=== PATIENT | male | born 1955 | race Caucasian/White ===

== ENCOUNTER 2016-11-09 13:07 | Emergency (ER) | payer OTHER ==
[~2016-11-09] VITALS: Ht 170.2 cm; Wt 82.0 kg
[~2016-11-09 13:07] MED LIST: ASPI325T39 PO; BRIM0.1S OPR; CHOL100010 PO; CYAN10005 PO; MULT-506 PO; OMEG10007 PO; OXYC1TAB3 PO; PRED1SUS3 OPR
[2016-11-09 13:15] VITALS: Ht 170.2 cm; Wt 82.0 kg
[2016-11-09 13:19] VITALS: O2SAT 98
[2016-11-09 13:30] LABS: BASO % 0.2 %; BASO ABS # 0.05 K/uL (0-0.2); COMPLETE YES; HEMATOCRIT 50.1 % (42-52); IG% 0.4 %; LYMPH ABS # 2.22 K/uL (1.2-3.4); MEAN CELL VOLUME 92.1 fL (80-100); MEAN CORPUSCULAR HEMOGLOBIN 32.2 pg (25-34); MEAN CORPUSCULAR HGB CONC 34.9 g/dl (32-36); MEAN PLATELET VOLUME 9.5 fL (7.4-10.4); MONO % 3.5 %; NEUT % 84.9 %; PLATELET COUNT 336 K/uL (130-400); RED BLOOD COUNT 5.44 M/uL (4.7-6.1)
[2016-11-09 13:47] LABS: BUN/CREATININE RATIO 11.6 (10-20); CALCIUM 9.1 mg/dl (8.5-10.1); CREATININE 0.94 mg/dl (0.60-1.40); POTASSIUM 3.8 mmol/L (3.5-5.1)
[2016-11-09] MEDS ORDERED: SODIUM CHLORIDE 0.9% 1000ML 1,000 ML IV STA ×2 (14:20→15:13)
[2016-11-09] MEDS ORDERED: FENTANYL CITRATE INJ 50 MCG/1 ML 2 ML VIAL IV STA (14:20)
[2016-11-09] MEDS ORDERED: ONDANSETRON INJ 2 MG/ML 2 ML VIAL IV STA (14:20)
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
[2016-11-09] MEDS ORDERED: OPTIRAY 320 IV PRN (14:30)
[2016-11-09] MEDS ORDERED: OXYC-164 PO (14:48)
[2016-11-09] MEDS ORDERED: HYDROmorphone INJ 1 MG/ML SYR IV STA (15:03)
--- NOTE | 2016-11-09 15:15 | DIAGNOSTIC IMAGING REPORT ---
ABDOMEN AND PELVIS CT WITH IV CONTRAST CT DOSE: 447.95 mGy.cm HISTORY: RLQ abdominal pain, leukocytosis TECHNIQUE: Multiaxial CT images of the abdomen and pelvis were performed following the use of intravenous contrast. COMPARISON STUDY: Abdomen and pelvis CT 07/28/2014. FINDINGS: Stable benign 4 mm nodules within the lung bases. There are mild dependent changes seen within the lung bases. No acute fractures. Cholecystectomy. A 7 mm hypodense lesion within the right hepatic lobe is too small to characterize. The spleen, pancreas, and right adrenal gland are unremarkable. There is a thickened left adrenal gland, unchanged. A few bilateral renal hypodense lesions. Some of these are subcentimeter in size and too small to characterize. Dominant lesion within the upper pole the right kidney measures 1.4 cm. This does not clearly represent a simple cyst. Dominant lesion within the lower pole the left kidney measures 2.5 cm and likely represents a cyst. No left-sided hydronephrosis. Mild right hydronephrosis secondary to a 3 mm obstructing stone at the right ureterovesical junction. There is right perinephric and periureteral fat stranding. No retroperitoneal lymphadenopathy. Complete occlusion of the left common iliac artery with reconstitution of the external iliac artery/internal iliac artery bifurcation. Therefore, this is likely chronic. Bladder is not well-distended. Colonic diverticulosis. No bowel wall thickening or obstruction. Normal appendix. IMPRESSION: 1. A 3 mm obstructing stone at the right ureterovesical junction resulting in mild right hydronephrosis. 2. A 14 mm hypodense lesion within the upper pole of the right kidney which does not clearly represent a simple cyst. Follow-up nonemergent ultrasound may help for further evaluation. 3. Colonic diverticulosis. 4. Normal appendix. 5. No bowel wall thickening or obstruction. 6. 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 Electronically signed by: Daniel Julien M.D. 11/09/2016 3:13 PM Dictated Date/Time: 11/09/2016 3:05 PM
[2016-11-09 15:35] LABS: URINE APPEARANCE CLEAR (CLEAR); URINE BILIRUBIN NEG (NEG); URINE COLOR YELLOW; URINE EPITHELIAL CELL AUTO 0-5 /lpf (0-5); URINE NITRITE NEG (NEG); URINE PH 6.5 (4.5-7.5); UROBILINOGEN NEG (NEG); ZZUR CULT IF INDIC CLEAN CATCH NO
[2016-11-09 15:36] LABS: MANUAL MICROSCOPIC REQUIRED? NO; REVIEW REQ? NO
[2016-11-09] MEDS ORDERED: OXYCODONE IR HOME PACK PO ONE (15:45)
[2016-11-09 16:35] VITALS: BP 148/87; PULSE 93; O2SAT 95
== END 2016-11-09 16:20 | disposition home or self-care (01) ==
LOC: EDBD 13:07 → C.EDB 13:08
DX: N20.1 Calculus of ureter (principal); N13.30 Unspecified hydronephrosis; D72.829 Elevated white blood cell count, unspecified; I15.9 Secondary hypertension, unspecified; Z79.82 Long term (current) use of aspirin; Z86.59 Personal history of other mental and behavioral disorders; Z87.442 Personal history of urinary calculi

== ENCOUNTER 2018-11-10 14:42 | Inpatient (IN) ==
[2018-11-10] MEDS ORDERED: SODIUM CHLORIDE 0.9% 1000ML 1,000 ML IV SCH (15:15)
[2018-11-10] MEDS ORDERED: fentaNYL citrate 100 MCG/2 ML VIAL IV STA ×3 (15:23→18:38)
[2018-11-10] MEDS ORDERED: ACETAMINOPHEN 1,000 MG/100 ML VIAL IV STA (15:23)
[2018-11-10] MEDS ORDERED: cefTRIAXone SODIUM 1,000 MG/50 ML BAG IV STA (15:31)
[2018-11-10 16:55] LABS: Appearance Urine Clear (Clear); Bilirubin Urine Negative (Negative); Blood Urine 1+ (Negative); Color Urine Yellow; Glucose Urine UA Negative (Negative); Ketones Urine Negative (Negative); Leukocyte Esterase Urine Negative (Negative); Nitrite Urine Negative (Negative); Protein Urine Negative (Negative); Specific Gravity Urine 1.025 (1.000-1.030); Urobilinogen Urine Negative (Negative)
[2018-11-10 17:08] LABS: Bacteria Urine Negative (Negative); WBC Urine 0-5 /hpf (0-5)
[2018-11-10 17:09] LABS: Hyaline Casts Urine 0-5 /lpf (0-5)
[2018-11-10 17:51] LABS: Basophils # (auto) 0.05 K/uL (0-0.2); Basophils % (auto) 0.2 %; Eosinophils # (auto) 0.04 K/uL (0-0.5); Eosinophils % (auto) 0.2 %; Hematocrit (blood only) 45.6 % (42-52); Hemoglobin 16.7 g/dL (14.0-18.0); Immature Granulocytes % (auto) 0.4 %; Lymphocytes # (auto) 1.67 K/uL (1.2-3.4); Lymphocytes % (auto) 7.3 %; Mean Corpuscular Hgb Conc 36.6 g/dL (32-36); Mean Corpuscular Volume 93.1 fL (80-100); Mean Platelet Volume 9.9 fL (7.4-10.4); Monocytes # (auto) 1.49 K/uL (0.11-0.59); Monocytes % (auto) 6.5 %; Neutrophils # (auto) 19.44 K/uL (1.4-6.5); Neutrophils % (auto) 85.4 %; Platelet Count 285 K/uL (130-400); RDW Coefficient of Variation 14.2 % (11.5-14.5); RDW Standard Deviation 47.9 fL (36.4-46.3); White Blood Count 22.79 K/uL (4.8-10.8)
[2018-11-10 18:06] LABS: Albumin Level 3.4 gm/dl (3.4-5.0); Bilirubin Direct < 0.1 mg/dl (0-0.2); Blood Urea Nitrogen 11 mg/dl (7-18); Calcium 8.7 mg/dl (8.5-10.1); Carbon Dioxide 24 mmol/L (21-32); Chloride 111 mmol/L (98-107); Creatinine Clr Calc Pharmacy 72.7 ml/min; Est GFR (African American) 86.9; Glucose 156 mg/dl (70-99); Potassium 3.4 mmol/L (3.5-5.1); Sodium 141 mmol/L (136-145)
[2018-11-10 18:10] LABS: Alanine Aminotransferase 19 U/L (12-78); Albumin Globulin Ratio 0.8 (0.9-2); Alkaline Phosphatase 63 U/L (45-117); Aspartate Aminotransferase 16 U/L (15-37); Bilirubin,Total 0.2 mg/dl (0.2-1); Total Protein 7.4 gm/dl (6.4-8.2)
[2018-11-10] MEDS ORDERED: IOVERSOL 100ml IV PRN (19:01)
--- NOTE | 2018-11-10 19:21 | CT Scan Report ---
ABDOMEN AND PELVIS CT WITH IV CONTRAST CT DOSE: 713.10 mGycm HISTORY: right flank pain, known kidney stone TECHNIQUE: Multiaxial CT images of the abdomen and pelvis were performed following the use of intrave nous contrast. A dose lowering technique was utilized adhering to the principles of ALARA. COMPARISON STUDY: Abdomen and pelvis CT 11/06/2018. FINDINGS: Bibasilar densities favor subsegmental atelectasis. No pneumoperitoneum. No pneumatosis. No fractures within the visualized osseous structures. There is a 9 mm hypodense lesion within the righ t hepatic lobe. Small fat-containing epigastric midline hernia. No change in the 3 mm stone at the le ft ureterovesical junction resulting in mild left hydroureteronephrosis. Left renal cysts remain unch anged. There is a 16 mm lesion within the upper pole the right kidney which appears to enhance. There fore, this is concerning for a renal mass. No right-sided hydronephrosis. Left adrenal gland thickeni ng, unchanged. Normal right adrenal gland. The pancreas is unremarkable. Prior cholecystectomy. No re troperitoneal lymphadenopathy. Chronic occlusion of the left common iliac artery, unchanged. Colonic diverticulosis. Mild bladder wall thickening. No bowel wall thickening or obstruction. Normal appendi x. Left perinephric edema is noted. IMPRESSION: 1. No change in the 3 mm obstructing stone within the left ureterovesical junction resulting in mild left hydronephrosis. 2. No bowel wall thickening or obstruction. 3. Normal appendix. 4. A 16 mm exophytic lesion within the upper pole of the right kidney which appears to enhance. This is concerning for a renal mass and a dedicated renal CT or renal MRI is recommended for further evalu ation. 5. Bladder wall thickening. This favors a cystitis. 6. Colonic diverticulosis. No evidence for diverticulitis. Electronically signed by: Daniel Julien M.D. 11/10/2018 7:19 PM
[2018-11-10] MEDS ORDERED: POTASSIUM CHLORIDE 20 MEQ TABCR PO STA (20:04)
[2018-11-10] MEDS ORDERED: LISINOPRIL 5 MG TAB PO STA (20:07)
[2018-11-10] MEDS: MoRPHine SULFATE 4 MG/ML 1 ML CARP\\VIAL IV PRN (20:24)
[2018-11-10 20:34] LABS: Magnesium 2.2 mg/dl (1.8-2.4)
--- NOTE | 2018-11-10 20:41 | XRay Report ---
XR chest 1V portable HISTORY: Hypoxia. COMPARISON: Chest 07/28/2014. FINDINGS: Punctate calcified granuloma within the left midlung zone, unchanged. The lungs are otherwi se clear. The heart is normal in size. No pleural effusions. No pneumothorax. IMPRESSION: No acute process. Electronically signed by: Daniel Julien M.D. 11/10/2018 8:40 PM
--- NOTE | 2018-11-10 20:46 | History & Physical Report ---
Date of Service November 10, 2018 Assessment & Plan (1) Complicated UTI (urinary tract infection): Obstructive uropathy Partially treated UTI No overt sepsis for now Incidental finding of right renal mass on CT hypertension, elevated secondary discomfort Patient unaware of diagnosis despite outpatient documentation. Hypokalemia secondary emesis chronic bilateral blindness status post surgery chronic HCV status post Rx ongoing tobacco abuse Narcotic dependence as per records Hyperglycemia rule out DM GMF Follow urine cultures, IV ceftriaxone Analgesia, judicious narcotic use given history of narcotic dependence as per records/terminated outpatient AURELIANO Initiate lisinopril replace potassium Flomax Strain urine Urology consult RE obstructive uropathy, left; right renal mass on CT ( ER provider already in touch with Dr. Koroma.) Check hemoglobin A1c Nicotine patch DVT prophylaxis. Lovenox subcu Full code History of Present Illness Chief Complaint: Left flank pain Primary Care Provider: Pedro Vides MD History obtained from patient and records. Medical history significant for hypertension, chronic bilateral blindness, chronic HCV status post Rx, ongoing tobacco abuse, urolithiasis, narcotic dependence as per records Recent confinement July 2014 for possible cholecystitis. Patient signed out AGAINST MEDICAL ADVICE. Patient was seen at the ER 4 days ago for 4 days history achy left flank pain, sweats, chills reminiscent of kidney stone pain. One episode of emesis. CT abdomen pelvis showed a 3 mm calculus at the level of left UVJ with secondary obstructive changes. Patient given IV ceftriaxone at the ER. Admission recommended but patient refused. Poor compliance with outpatient prescriptions of ciprofloxacin and Flomax. Patient return to the ER with intractable symptoms. Medical History as above Surgical History : Eye surgeries, cholecystectomy, carpal tunnel surgery Family History : Diabetes, heart disease, stroke Personal/Social history : 2 packs daily, occasional EtOH intake, disabled Allergies Allergy/AdvReac Type Severity Reaction Status Date / Time amoxicillin Allergy Mild RASH Verified 11/10/18 16:32 Home Medications Home Medications Medication Instructions Recorded Confirmed Type ciprofloxacin HCl 500 mg PO BID #10 tab 11/06/18 11/10/18 Rx omega 2-vzb-[id number]-fish oil [Fish Oil] 2 cap PO QAM 11/06/18 11/10/18 History oxycodone 5 mg PO Q6H PRN #14 tab 11/06/18 11/10/18 Rx tamsulosin [Flomax] 0.4 mg PO DAILY #10 cap 11/06/18 11/10/18 Rx Unknown Cholesterol Med 1 tab PO DAILY 11/10/18 11/10/18 History aspirin, buffered 650 mg PO DAILY 11/10/18 11/10/18 History cholecalciferol (vitamin D3) 2,000 unit PO DAILY 11/10/18 11/10/18 History Past Med/Surg History Medical History Corneal transplant (Resolved 04/14/13) Cholelithiasis (Acute) Surgical History History of cholecystectomy Family History Other No pertinent family history Social History Preferred Language: Greenlandic Communication Ability: Effective Masticator Required: No Beliefs That Will Affect Care: L[employer] Day Latter Day Beliefs: "confirmed atheist, recovering Baptism" Current Living Situation: Significant Other current occupational status: retired Other Information That Helps Us Care for You: No Feels Safe at Home: Yes Safety Concerns: Feels Safe At This Time Smoking Status: Current every day smoker Tobacco Type: cigarettes Cigarettes Per Day: 40 Do You Dip or Chew Tobacco: No Hx Alcohol Use: Yes Alcohol type: beer and hard liquor Hx Substance Use: No Review of Systems Review of Systems: As per HPI, all 10 systems reviewed, all other ROS negative Physical Exam Physical Exam: GENERAL: Comfortable, no respiratory distress SKIN: Normal color, warm HEENT: [place] palpebral conjunctivae, bilateral prosthetic eyeballs noted, dry buccal mucosa NECK : Supple, no tenderness CHEST : CTA, no tenderness HEART : RRR, no obvious murmurs ABDOMEN: Some distention, nontender BACK : Flank tenderness left EXTREMITIES : No LE swelling/tenderness, no other conspicuous deformities noted NEUROLOGIC : Coherent, no facial asymmetry, gait and stance not assessed Results & Data Vital Signs (Past 12 Hours) Vital Signs Temp Pulse Pulse Resp BP BP Pulse Ox 11/10/18 20:26 95 H 19 222/121 H 95 11/10/18 20:12 77 19 94 11/10/18 18:47 79 18 201/114 H 96 11/10/18 18:04 78 20 187/108 H 96 11/10/18 17:13 90 13 186/105 H 88 L 11/10/18 17:00 88 15 207/104 H 93 11/10/18 15:30 87 85 18 216/113 H 95 11/10/18 15:02 37.1 C 80 18 205/108 H 97 Laboratory Results Laboratory Results WBC 22.79 K/uL (4.8-10.8) H 11/10/18 17:39 RBC 4.90 M/uL (4.7-6.1) 11/10/18 17:39 Hgb 16.7 g/dL (14.0-18.0) 11/10/18 17:39 Hct 45.6 % (42-52) 11/10/18 17:39 MCV 93.1 fL (80-100) 11/10/18 17:39 MCH 34.1 pg (25-34) H 11/10/18 17:39 MCHC 36.6 g/dL (32-36) H 11/10/18 17:39 RDW Std Deviation 47.9 fL (36.4-46.3) H 11/10/18 17:39 RDW Coeff of Ned 14.2 % (11.5-14.5) 11/10/18 17:39 Plt Count 285 K/uL (130-400) 11/10/18 17:39 MPV 9.9 fL (7.4-10.4) 11/10/18 17:39 Immature Gran % (Auto) 0.4 % 11/10/18 17:39 Neut % (Auto) 85.4 % 11/10/18 17:39 Lymph % (Auto) 7.3 % 11/10/18 17:39 [place] % (Auto) 6.5 % 11/10/18 17:39 Eos % (Auto) 0.2 % 11/10/18 17:39 Baso % (Auto) 0.2 % 11/10/18 17:39 Immature Gran # (Auto) 0.10 K/uL (0.00-0.02) H 11/10/18 17:39 Neut # (Auto) 19.44 K/uL (1.4-6.5) H 11/10/18 17:39 Lymph # (Auto) 1.67 K/uL (1.2-3.4) 11/10/18 17:39 [place] # (Auto) 1.49 K/uL (0.11-0.59) H 11/10/18 17:39 Eos # (Auto) 0.04 K/uL (0-0.5) 11/10/18 17:39 Baso # (Auto) 0.05 K/uL (0-0.2) 11/10/18 17:39 Sodium 141 mmol/L (136-145) 11/10/18 17:39 Potassium 3.4 mmol/L (3.5-5.1) L 11/10/18 17:39 Chloride 111 mmol/L (98-107) H 11/10/18 17:39 Carbon Dioxide 24 mmol/L (21-32) 11/10/18 17:39 Anion Gap 6.0 (3-11) 11/10/18 17:39 BUN 11 mg/dl (7-18) 11/10/18 17:39 Creatinine 1.04 mg/dl (0.6-1.4) 11/10/18 17:39 Est Cr Clr Drug Dosing 72.7 ml/min 11/10/18 17:39 Est GFR ( Amer) 86.9 11/10/18 17:39 Est GFR (Non-Af Amer) 75.0 11/10/18 17:39 BUN/Creatinine Ratio 11.0 (10-20) 11/10/18 17:39 Glucose 156 mg/dl (70-99) H 11/10/18 17:39 Lactate 1.1 mmol/L (0.4-2.0) 11/10/18 17:39 Calcium 8.7 mg/dl (8.5-10.1) 11/10/18 17:39 Magnesium 2.2 mg/dl (1.8-2.4) 11/10/18 17:39 Total Bilirubin 0.2 mg/dl (0.2-1) 11/10/18 17:39 Direct Bilirubin < 0.1 mg/dl (0-0.2) 11/10/18 17:39 AST 16 U/L (15-37) 11/10/18 17:39 ALT 19 U/L (12-78) 11/10/18 17:39 Alkaline Phosphatase 63 U/L (45-117) 11/10/18 17:39 Total Protein 7.4 gm/dl (6.4-8.2) 11/10/18 17:39 Albumin 3.4 gm/dl (3.4-5.0) 11/10/18 17:39 Globulin 4.0 gm/dl (2.5-4.0) 11/10/18 17:39 Albumin/Globulin Ratio 0.8 (0.9-2) L 11/10/18 17:39 Lipase 75 U/L (73-393) 11/10/18 17:39 TSH 0.928 uIu/ml (0.300-4.500) 11/10/18 17:39 Urine Color Yellow 11/10/18 15:47 Urine Appearance Clear (Clear) 11/10/18 15:47 Urine pH 6.0 (4.5-7.5) 11/10/18 15:47 Ur Specific [place] 1.025 (1.000-1.030) 11/10/18 15:47 Urine Protein Negative (Negative) 11/10/18 15:47 Urine Glucose (UA) Negative (Negative) 11/10/18 15:47 Urine Ketones Negative (Negative) 11/10/18 15:47 Urine Blood 1+ (Negative) H 11/10/18 15:47 Urine Nitrite Negative (Negative) 11/10/18 15:47 Urine Bilirubin Negative (Negative) 11/10/18 15:47 Urine Urobilinogen Negative (Negative) 11/10/18 15:47 Ur Leukocyte Esterase Negative (Negative) 11/10/18 15:47 Urine RBC 10-30 /hpf (0-4) H 11/10/18 15:47 Urine WBC 0-5 /hpf (0-5) 11/10/18 15:47 Ur Epithelial Cells 5-10 /lpf (0-5) H 11/10/18 15:47 Urine Bacteria Negative (Negative) 11/10/18 15:47 Hyaline Casts 0-5 /lpf (0-5) 11/10/18 15:[address] abdomen pelvis: 1. No change in the 3 mm obstructing stone within the left ureterovesical junction resulting in mild left hydronephrosis. 2. No bowel wall thickening or obstruction. 3. Normal appendix. 4. A 16 mm exophytic lesion within the upper pole of the right kidney which appears to enhance. This is concerning for a renal mass and a dedicated renal CT or renal MRI is recommended for further evaluation. 5. Bladder wall thickening. This favors a cystitis. 6. Colonic diverticulosis. No evidence for diverticulitis. Chest x-ray: No acute pathology EKG as per my interpretation: Rate 95, NSR, no ischemia
[2018-11-10] MEDS ORDERED: NICOTINE 21 MG/24 HR TDSY TD ONE (20:59)
[2018-11-10 21:05] LABS: Amphetamines+Metham, Urine Neg (Neg); Barbiturates, Urine Neg (Neg); Benzodiazepine, Urine Neg (Neg); Cocaine, Urine Neg (Neg); MDMA (Ecstacy), Urine Neg (Neg); Methadone, Urine Neg (Neg); Opiate, Urine Neg (Neg); Phencyclidine, Urine Neg (Neg)
[2018-11-10] MEDS ORDERED: ACETAMINOPHEN 325 MG TAB PO PRN ×2 (21:06→21:10)
[2018-11-10] MEDS ORDERED: PROMETHAZINE HCL 12.5 MG in SODIUM CHLORIDE 0.9% 50 ML IV PRN (21:07)
[2018-11-10] MEDS ORDERED: TAMSULOSIN HCL 0.4 MG CAP PO ONE (22:00)
[2018-11-10] MEDS: TRAMADOL HCL 50 MG TABLET PO PRN (22:32)
[2018-11-10] MEDS ORDERED: OXYCODONE HCL IR 5 MG TAB (IMMEDIATE RELEASE) PO PRN (23:22)
[2018-11-10] MEDS: LACTATED RINGER'S 1,000 ML IV SCH (23:45)
[2018-11-11] MEDS: MoRPHine SULFATE 4 MG/ML 1 ML CARP\\VIAL IV PRN ×3 (03:00→21:48)
--- NOTE | 2018-11-11 03:04 | Emergency Department Note ---
Entered by Sabina Fuller acting as a scribe for Chinmay Varela MD History of Present Illness General Chief complaint: Kidney Stone Stated complaint: LT SIDE KIDNEY STONE Time Seen by Provider: 11/10/18 15:13 Source: patient Mode of arrival: ambulatory Limitations: no limitations History of Present Illness Provider complaint: Kidney stone Onset (ago): day(s) 4 Location: back and abdomen Severity: moderate Pain Consistency: + constant Maximum Pain Intensity: 9 Associated symptoms: + denies other symptoms and + fever/chills (+ fever, - chills); no nausea/vomiting and no weakness Patient is a 63 year old male presenting to the ED with kidney stone beginning x4 days ago. Patient states that he was diagnosed with a left sided kidney stone upon onset, and has been having worsening pain in the left flank and LLQ since. He notes he was given abx and oxycodone, but was only given one dose of abx since diagnosis. Patient shares that he has not been able to take his medication as frequently as his backup sawyer has not been accessible as normal. He shares he is having an associated cough and subjective fever. He denies any nausea, v omiting, weakness, chills, or any other complaints or concerns at this time. He notes he does smoke marijuana and cigarettes daily. Home Medications Home Medications Medication Instructions Recorded Confirmed Type ciprofloxacin HCl 500 mg PO BID #10 tab 11/06/18 11/10/18 Rx omega 8-pwt-wsq-fish oil [Fish Oil] 2 cap PO QAM 11/06/18 11/10/18 History oxycodone 5 mg PO Q6H PRN #14 tab 11/06/18 11/10/18 Rx tamsulosin [Flomax] 0.4 mg PO DAILY #10 cap 11/06/18 11/10/18 Rx Unknown Cholesterol Med 1 tab PO DAILY 11/10/18 11/10/18 History aspirin, buffered 650 mg PO DAILY 11/10/18 11/10/18 History cholecalciferol (vitamin D3) 2,000 unit PO DAILY 11/10/18 11/10/18 History Allergies Allergy/AdvReac Type Severity Reaction Status Date / Time amoxicillin Allergy Mild RASH Verified 11/10/18 16:32 Past Med/Surg History Medical History Corneal transplant (Resolved 04/14/13) Cholelithiasis (Acute) Surgical History History of cholecystectomy Family History Other No pertinent family history Social History Preferred Language: Tongan Communication Ability: Effective Contact Lens Blocker And Cutter Required: No Beliefs That Will Affect Care: Jew Jew Beliefs: "confirmed atheist, recovering Islam" Current Living Situation: Significant Other current occupational status: retired Other Information That Helps Us Care for You: No Feels Safe at Home: Yes Safety Concerns: Feels Safe At This Time Smoking Status: Current every day smoker Tobacco Type: cigarettes Cigarettes Per Day: 40 Do You Dip or Chew Tobacco: No Hx Alcohol Use: Yes Alcohol type: beer and hard liquor Hx Substance Use: No Review of Systems See HPI for pertinent positives & negatives. and A total of 10 systems reviewed and were otherwise negative Physical Exam Vital Signs Vital Signs - 24 hr 11/10/18 15:02 11/10/18 15:30 11/10/18 17:00 Temperature 37.1 C Temperature Source Oral Sepsis Recent Fever Within 48 Hours No Sepsis Action Taken by Nursing No Action Required Pulse Rate 80 87 Pulse Rate [Apical] 85 88 Pulse Rhythm Regular Pulse Rhythm [Apical] Regular Regular Respiratory Rate 18 18 15 Respiratory Effort / Characteristics Non-Labored Spontaneous Non-Labored Respiratory Depth Normal Normal Respiratory Pattern Blood Pressure 205/108 H Blood Pressure [Left Arm] 216/113 H 207/104 H Blood Pressure [Right Arm] Blood Pressure Mean 140 Blood Pressure Mean [Left Arm] 147 138 Blood Pressure Mean [Right Arm] Blood Pressure Position [Left Arm] Sitting Sitting Pulse Oximetry 97 95 93 Oxygen Delivery Method Room Air Room Air Room Air 11/10/18 17:13 11/10/18 18:04 11/10/18 18:47 Temperature Temperature Source Sepsis Recent Fever Within 48 Hours Sepsis Action Taken by Nursing Pulse Rate Pulse Rate [Apical] 90 78 79 Pulse Rhythm Pulse Rhythm [Apical] Regular Respiratory Rate 13 20 18 Respiratory Effort / Characteristics Non-Labored Non-Labored Respiratory Depth Normal Normal Normal Respiratory Pattern Blood Pressure Blood Pressure [Left Arm] 186/105 H 187/108 H 201/114 H Blood Pressure [Right Arm] Blood Pressure Mean Blood Pressure Mean [Left Arm] 132 134 143 Blood Pressure Mean [Right Arm] Blood Pressure Position [Left Arm] Sitting Sitting Sitting Pulse Oximetry 88 L 96 96 Oxygen Delivery Method Room Air Room Air Room Air 11/10/18 20:12 11/10/18 20:26 11/10/18 21:01 Temperature Temperature Source Sepsis Recent Fever Within 48 Hours Sepsis Action Taken by Nursing Pulse Rate Pulse Rate [Apical] 77 95 H 91 H Pulse Rhythm Pulse Rhythm [Apical] Respiratory Rate 19 19 18 Respiratory Effort / Characteristics Respiratory Depth Respiratory Pattern Blood Pressure Blood Pressure [Left Arm] 222/121 H 139/98 Blood Pressure [Right Arm] Blood Pressure Mean Blood Pressure Mean [Left Arm] 154 111 Blood Pressure Mean [Right Arm] Blood Pressure Position [Left Arm] Lying Pulse Oximetry 94 95 95 Oxygen Delivery Method 11/10/18 21:47 11/10/18 21:59 11/10/18 22:06 Temperature 36.9 C Temperature Source Oral Sepsis Recent Fever Within 48 Hours Sepsis Action Taken by Nursing Pulse Rate 89 Pulse Rate [Apical] 95 H Pulse Rhythm Pulse Rhythm [Apical] Respiratory Rate 18 19 Respiratory Effort / Characteristics Non-Labored Spontaneous Respiratory Depth Normal Respiratory Pattern Regular Blood Pressure 154/101 H Blood Pressure [Left Arm] Blood Pressure [Right Arm] 149/91 H Blood Pressure Mean Blood Pressure Mean [Left Arm] Blood Pressure Mean [Right Arm] 110 Blood Pressure Position [Left Arm] Pulse Oximetry 97 94 Oxygen Delivery Method Room Air Room Air GENERAL: Awake, alert, uncomfortable-appearing, in no distress HENT: Normocephalic, atraumatic. Oropharynx with dry mucous membranes and otherwise unremarkable. EYES: Normal conjunctiva. Sclera non-icteric. NECK: Supple. No nuchal rigidity. FROM. No JVD. RESPIRATORY: Clear to auscultation CARDIAC: Regular rate, normal rhythm. Extremities warm and well perfused. Pulses equal. ABDOMEN: Soft, non-distended. No rebound or guarding. No masses. Mild left flank and LLQ tenderness RECTAL: Deferred. MUSCULOSKELETAL: Chest examination reveals no tenderness. The back is symmetrical on inspection without obvious abnormality. There is no CVA tenderness to palpation. No joint edema. LOWER EXTREMITIES: Calves are equal size bilaterally and non-tender. No edema. No discoloration. NEURO: Normal sensorium. No sensory or motor deficits noted. SKIN: No rash or jaundice noted. Course 1521: Patient was evaluated in room A04B. A full history and physical examination were obtained. 1947: Reassessed patient and recommended admission. Patient is agreeable to admission. 1958: Discussed case with Dr. Lord, [facility] Hospitalist 2000: Discussed case with Dr. Koroma, who will see patient in the ED. Administered Medications Lactated Ringer's (Lr) 1,000 mls @ 80 mls/hr IV .[id number] PRISCILA Stop: 12/11/18 00:00 Last Admin: 11/10/18 23:45 Dose: 80 mls/hr Documented by: [id number] Morphine Sulfate (Morphine Sulfate) 4 mg IV Q6H PRN PRN Reason: Pain Stop: 11/24/18 20:15 Last Admin: 11/10/18 20:24 Dose: 4 mg Documented by: [id number] Tramadol HCl (Ultram) 25 - 50 mg PO Q4H PRN; Protocol PRN Reason: Pain Stop: 12/10/18 20:15 Last Admin: 11/10/18 22:32 Dose: 50 mg Documented by: [id number] Discontinued Medications Fentanyl Citrate (Fentanyl Citrate) 50 mcg IV NOW STA Stop: 11/10/18 15:24 Last Admin: 11/10/18 16:12 Dose: 50 mcg Documented by: [id number] Fentanyl Citrate (Fentanyl Citrate) 100 mcg IV NOW STA Stop: 11/10/18 17:05 Last Admin: 11/10/18 17:07 Dose: 100 mcg Documented by: [id number] Fentanyl Citrate (Fentanyl Citrate) 100 mcg IV NOW STA Stop: 11/10/18 18:39 Last Admin: 11/10/18 18:46 Dose: 100 mcg Documented by: [id number] Sodium Chloride (Nss 1000ml) 1,000 mls @ 999 mls/hr IV .Q1H1M PRISCILA Stop: 11/10/18 16:15 Last Infusion: 11/10/18 17:13 Dose: 0 mls/hr Documented by: [id number] Admin: 11/10/18 16:12 Dose: 999 mls/hr Documented by: [id number] Acetaminophen (Ofirmev) 1,000 mg in 100 mls @ 400 mls/hr IV NOW STA Stop: 11/10/18 15:37 Last Infusion: 11/10/18 16:26 Dose: 0 mls/hr Documented by: [id number] Admin: 11/10/18 16:11 Dose: 400 mls/hr Documented by: [id number] Ceftriaxone Sodium (Rocephin) 1,000 mg in 50 mls @ 100 mls/hr IV NOW STA Stop: 11/10/18 16:00 Last Infusion: 11/10/18 17:37 Dose: 0 mls/hr Documented by: [id number] Admin: 11/10/18 17:07 Dose: 100 mls/hr Documented by: [id number] Ioversol (Optiray 320 100ml) 94 ml IV ONCE PRN PRN Reason: Interaction Checking Stop: 11/14/18 19:00 Last Admin: 11/10/18 19:01 Dose: 94 ml Documented by: [id number] Lisinopril (Zestril) 2.5 mg PO NOW STA Stop: 11/10/18 20:08 Last Admin: 11/10/18 20:24 Dose: 2.5 mg Documented by: [id number] Nicotine (Nicoderm Cq) Confirm Administered Dose 21 mg TD .STK-MED ONE Stop: 11/10/18 21:00 Last Admin: 11/10/18 21:03 Dose: 21 mg Documented by: [id number] Potassium Chloride (Klor-Con M20) 20 meq PO NOW STA Stop: 11/10/18 20:05 Last Admin: 11/10/18 20:24 Dose: 20 meq Documented by: [id number] Tamsulosin HCl (Flomax) 0.4 mg PO NOW ONE Stop: 11/10/18 22:01 Last Admin: 11/10/18 22:31 Dose: 0.4 mg Documented by: [id number] Medical Decision Making Differential Diagnosis Differential diagnosis: Etiologies such as renal colic, appendicitis, diverticulitis, mesenteric ischemia, aortic pathology, infections, inflammatory bowel disease, PUD, biliary pathology, UTI, as well as others were entertained. Medical Records Attestation: I reviewed the patient's medical records. Given leukocytosis and UA with white blood cells, it was recommended for patient to be admitted after discussion with urology. Patient was given IV rocephin and recommended follow up with urology. Home Medications Current Medication List: was personally reviewed by me Laboratory Data Attestation: I reviewed the patient's lab results. Result diagrams: 11/10/18 17:39 04/24/19 17:39 Lab Results 11/10/18 11/10/18 11/10/18 Range/Units 15:47 15:47 17:39 WBC 22.79 H (4.8-10.8) K/uL RBC 4.90 (4.7-6.1) M/uL Hgb 16.7 (14.0-18.0) g/dL Hct 45.6 (42-52) % MCV 93.1 (80-100) fL MCH 34.1 H (25-34) pg MCHC 36.6 H (32-36) g/dL RDW Std Deviation 47.9 H (36.4-46.3) fL RDW Coeff of Ned 14.2 (11.5-14.5) % Plt Count 285 (130-400) K/uL MPV 9.9 (7.4-10.4) fL Immature Gran % (Auto) 0.4 % Neut % (Auto) 85.4 % Lymph % (Auto) 7.3 % [place] % (Auto) 6.5 % Eos % (Auto) 0.2 % Baso % (Auto) 0.2 % Immature Gran # (Auto) 0.10 H (0.00-0.02) K/uL Neut # (Auto) 19.44 H (1.4-6.5) K/uL Lymph # (Auto) 1.67 (1.2-3.4) K/uL [place] # (Auto) 1.49 H (0.11-0.59) K/uL Eos # (Auto) 0.04 (0-0.5) K/uL Baso # (Auto) 0.05 (0-0.2) K/uL Sodium (136-145) mmol/L Potassium (3.5-5.1) mmol/L Chloride (98-107) mmol/L Carbon Dioxide (21-32) mmol/L Anion Gap (3-11) BUN (7-18) mg/dl Creatinine (0.6-1.4) mg/dl Est Cr Clr Drug Dosing ml/min Est GFR ( Amer) Est GFR (Non-Af Amer) BUN/Creatinine Ratio (10-20) Glucose (70-99) mg/dl Lactate (0.4-2.0) mmol/L Calcium (8.5-10.1) mg/dl Magnesium (1.8-2.4) mg/dl Total Bilirubin (0.2-1) mg/dl Direct Bilirubin (0-0.2) mg/dl AST (15-37) U/L ALT (12-78) U/L Alkaline Phosphatase (45-117) U/L Total Protein (6.4-8.2) gm/dl Albumin (3.4-5.0) gm/dl Globulin (2.5-4.0) gm/dl Albumin/Globulin Ratio (0.9-2) Lipase (73-393) U/L TSH (0.300-4.500) uIu/ml Urine Color Yellow Urine Appearance Clear (Clear) Urine pH 6.0 (4.5-7.5) Ur Specific [place] 1.025 (1.000-1.030) Urine Protein Negative (Negative) Urine Glucose (UA) Negative (Negative) Urine Ketones Negative (Negative) Urine Blood 1+ H (Negative) Urine Nitrite Negative (Negative) Urine Bilirubin Negative (Negative) Urine Urobilinogen Negative (Negative) Ur Leukocyte Esterase Negative (Negative) Urine RBC 10-30 H (0-4) /hpf Urine WBC 0-5 (0-5) /hpf Ur Epithelial Cells 5-10 H (0-5) /lpf Urine Bacteria Negative (Negative) Hyaline Casts 0-5 (0-5) /lpf Urine Opiates Screen Neg (Neg) Ur Methadone, Qual Neg (Neg) Urine Barbiturates Neg (Neg) Ur Phencyclidine (PCP) Neg (Neg) U Amphetamin/Meth Scrn Neg (Neg) MDMA (Ecstasy) Screen Neg (Neg) U Benzodiazepines Scrn Neg (Neg) Ur Cocaine Metabolite Neg (Neg) U Marijuana (THC) Screen Pos H (Neg) 11/10/18 11/10/18 Range/Units 17:39 17:39 WBC (4.8-10.8) K/uL RBC (4.7-6.1) M/uL Hgb (14.0-18.0) g/dL Hct (42-52) % MCV (80-100) fL MCH (25-34) pg MCHC (32-36) g/dL RDW Std Deviation (36.4-46.3) fL RDW Coeff of Ned (11.5-14.5) % Plt Count (130-400) K/uL MPV (7.4-10.4) fL Immature Gran % (Auto) % Neut % (Auto) % Lymph % (Auto) % [place] % (Auto) % Eos % (Auto) % Baso % (Auto) % Immature Gran # (Auto) (0.00-0.02) K/uL Neut # (Auto) (1.4-6.5) K/uL Lymph # (Auto) (1.2-3.4) K/uL [place] # (Auto) (0.11-0.59) K/uL Eos # (Auto) (0-0.5) K/uL Baso # (Auto) (0-0.2) K/uL Sodium 141 (136-145) mmol/L Potassium 3.4 L (3.5-5.1) mmol/L Chloride 111 H (98-107) mmol/L Carbon Dioxide 24 (21-32) mmol/L Anion Gap 6.0 (3-11) BUN 11 (7-18) mg/dl Creatinine 1.04 (0.6-1.4) mg/dl Est Cr Clr Drug Dosing 72.7 ml/min Est GFR ( Amer) 86.9 Est GFR (Non-Af Amer) 75.0 BUN/Creatinine Ratio 11.0 (10-20) Glucose 156 H (70-99) mg/dl Lactate 1.1 (0.4-2.0) mmol/L Calcium 8.7 (8.5-10.1) mg/dl Magnesium 2.2 (1.8-2.4) mg/dl Total Bilirubin 0.2 (0.2-1) mg/dl Direct Bilirubin < 0.1 (0-0.2) mg/dl AST 16 (15-37) U/L ALT 19 (12-78) U/L Alkaline Phosphatase 63 (45-117) U/L Total Protein 7.4 (6.4-8.2) gm/dl Albumin 3.4 (3.4-5.0) gm/dl Globulin 4.0 (2.5-4.0) gm/dl Albumin/Globulin Ratio 0.8 L (0.9-2) Lipase 75 (73-393) U/L TSH 0.928 (0.300-4.500) uIu/ml Urine Color Urine Appearance (Clear) Urine pH (4.5-7.5) Ur Specific [place] (1.000-1.030) Urine Protein (Negative) Urine Glucose (UA) (Negative) Urine Ketones (Negative) Urine Blood (Negative) Urine Nitrite (Negative) Urine Bilirubin (Negative) Urine Urobilinogen (Negative) Ur Leukocyte Esterase (Negative) Urine RBC (0-4) /hpf Urine WBC (0-5) /hpf Ur Epithelial Cells (0-5) /lpf Urine Bacteria (Negative) Hyaline Casts (0-5) /lpf Urine Opiates Screen (Neg) Ur Methadone, Qual (Neg) Urine Barbiturates (Neg) Ur Phencyclidine (PCP) (Neg) U Amphetamin/Meth Scrn (Neg) MDMA (Ecstasy) Screen (Neg) U Benzodiazepines Scrn (Neg) Ur Cocaine Metabolite (Neg) U Marijuana (THC) Screen (Neg) Imaging Data Radiologist's Impression: ABDOMEN AND PELVIS CT WITH IV CONTRAST CT DOSE: 713.10 mGycm HISTORY: right flank pain, known kidney stone TECHNIQUE: Multiaxial CT images of the abdomen and pelvis were performed following the use of intravenous contrast. A dose lowering technique was utilized adhering to the principles of ALARA. COMPARISON STUDY: Abdomen and pelvis CT 11/06/2018. FINDINGS: Bibasilar densities favor subsegmental atelectasis. No pneumoperitoneum. No pneumatosis. No fractures within the visualized osseous structures. There is a 9 mm hypodense lesion within the right hepatic lobe. Small fat-containing epigastric midline hernia. No change in the 3 mm stone at the left ureterovesical junction resulting in mild left hydroureteronephrosis. Left renal cysts remain unchanged. There is a 16 mm lesion within the upper pole the right kidney which appears to enhance. Therefore, this is concerning for a renal mass. No right-sided hydronephrosis. Left adrenal gland thickening, unchanged. Normal right adrenal gland. The pancreas is unremarkable. Prior cholecystectomy. No retroperitoneal lymphadenopathy. Chronic occlusion of the left common iliac artery, unchanged. Colonic diverticulosis. Mild bladder wall thickening. No bowel wall thickening or obstruction. Normal appendix. Left perinephric edema is noted. IMPRESSION: 1. No change in the 3 mm obstructing stone within the left ureterovesical junction resulting in mild left hydronephrosis. 2. No bowel wall thickening or obstruction. 3. Normal appendix. 4. A 16 mm exophytic lesion within the upper pole of the right kidney which appears to enhance. This is concerning for a renal mass and a dedicated renal CT or renal MRI is recommended for further evaluation. 5. Bladder wall thickening. This favors a cystitis. 6. Colonic diverticulosis. No evidence for diverticulitis. Electronically signed by: Daniel Julien M.D. 11/10/2018 7:19 PM Blood Pressure Blood Pressure Findings: Elevated blood pressure MDM Narrative The patient is a pleasant 63 y/o gentleman with a pmhx of kidney stones who presents to the emergency department with worsening left flank pain after presenting to the ED on 11/06 with similar sx diagnosed with obstructing left ureteral stone per HPI. On patient's prior visit patient left AMA after declining admission recommendation given patient had a leukocytosis of 22K and UA with WBCs after d/w urology, Dr. Koroma. Since then patient reports he forgot to take his prescribed antibiotic after his ED dose of Ceftriaxone. On arrival the patient is uncomfortable but in NAD, AFVSS. He appears clinically dry. He has mild Left flank/LLQ ttp. WBC 22K. H/H and platelets wnl. Chemistry without acidosis. Lactate wnl. LFTs unremarkable. UA without evidence of infection. Blood cx drawn and patient given dose of CTX. CT demonstrates un changed 3 mm obstructing stone within the left ureterovesical junction resulting in mild left hydronephrosis. Bladder wall thickening, nonspecific. Patient is agreeable for admission this time. Case d/w Dr. Koroma, urology, who again agrees with plan for admission. [facility] Impression & Plan Hydronephrosis due to obstruction of ureter, Ureterolithiasis Discharge Plan Visit Data *Final* Discharge Date/Time: 11/10/18 21:47 Chief Complaint: Kidney Stone Stated Complaint: LT SIDE KIDNEY STONE ED Provider: Chinmay Varela Discharge Problem: Hydronephrosis due to obstruction of ureter, Ureterolithiasis Patient Disposition: Admitted As Inpatient Discharge Instructions Interventions: ED Discharge Assessment Last Done: 11/10/18 21:47 The scribe's documentation has been prepared under my direction and personally reviewed by me in its entirety. I confirm that the note above accurately reflects all work, treatment, procedures, and medical decision making performed by me.
[2018-11-11 05:36] LABS: Estimated Average Glucose 117 mg/dl; Hemoglobin A1C 5.7 % (4.5-5.6)
[2018-11-11 07:05] LABS: Partial Thromboplastin Time 25.9 Seconds (21.0-31.0); Prothrombin Time 10.3 Seconds (9.0-12.0)
[2018-11-11 07:26] LABS: BUN Creatinine Ratio 12.3 (10-20); Calcium 8.5 mg/dl (8.5-10.1); Creatinine Clr Calc Pharmacy 93.3 ml/min; Est GFR (African American) 108.1; Est GFR (Non-African American) 93.3; Potassium 3.6 mmol/L (3.5-5.1)
[2018-11-11] MEDS: TRAMADOL HCL 50 MG TABLET PO PRN ×2 (07:28→19:37)
[2018-11-11] MEDS: LISINOPRIL 2.5 MG TAB PO SCH (07:29)
[2018-11-11] MEDS: NICOTINE 21 MG/24 HR TDSY TD SCH (07:29)
[2018-11-11] MEDS: cefTRIAXone SODIUM 2,000 MG in DEXTROSE 5% 50 ML IV SCH (08:57)
[2018-11-11] MEDS: TAMSULOSIN HCL 0.4 MG CAP PO SCH (08:58)
[2018-11-11] MEDS: ENOXAPARIN INJ 40 MG/0.4 ML SYR SQ SCH (08:59)
--- NOTE | 2018-11-11 09:02 | Urology Consultation ---
Date of Consultation November 11, 2018 Assessment & Plan (1) Ureterolithiasis: Patient remains afebrile, appears comfortable with supportive medication. Should this patient develop a fever contact our service immediately for emergent stenting. Poor medication adherence at home, had not been taking Tamsulosin. Stone is 3mm and very distal at UVJ. Recommend continued supportive medication including pain & nausea control, IVF, empiric antibiotic, and Tamsulosin. Push PO intake, strain all urine. Diet today. KUB tomorrow AM to monitor progress. I discussed incidental renal mass finding with patient though I'm afraid he did not understand the significance of this and the need for further outpatient workup. Will revisit this topic again with patient tomorrow. Thanks for the consult. Will continue to follow. Attending: pt evaluated agree with above (2) Renal colic: (3) Renal mass: History of Present Illness Attending Physician: Ting Arriaza History of Present Illness 63YO male with 3mm very distal L UVJ stone, resulting L hydronephrosis, and R renal mass. Patient reports flank pain, sweats, nausea bringing him to the ER on 11/06, was diagnosed with distal stone at that time and discharged with Cipro and Tamsulosin. Patient reports that he forgot to take these medications, his symptoms worsened and he returned to the ER again last night. He was admitted for observation and URO consult. His CT abd/pelvis is reviewed demonstrating 3mm stone L UVJ; resulting mild L hydronephrosis; 16mm R renal mass. UC&S is pending, remains on empiric Ceftriaxone. This is patient's 3rd kidney stone, reports history of spontaneous passage x 2. He has never seen a urologist. Feeling well this morning with supportive medication. Continues to void spontaneously without bother. No dysuria. Patient is chronically blind, unable to comment regarding hematuria. No fevers/chills. +mild nausea. Allergies Allergy/AdvReac Type Severity Reaction Status Date / Time amoxicillin Allergy Mild RASH Verified 11/10/18 16:32 Home Medications Home Medications Medication Instructions Recorded Confirmed Type ciprofloxacin HCl 500 mg PO BID #10 tab 11/06/18 11/10/18 Rx omega 1-llt-zsa-fish oil [Fish Oil] 2 cap PO QAM 11/06/18 11/10/18 History oxycodone 5 mg PO Q6H PRN #14 tab 11/06/18 11/10/18 Rx tamsulosin [Flomax] 0.4 mg PO DAILY #10 cap 11/06/18 11/10/18 Rx Unknown Cholesterol Med 1 tab PO DAILY 11/10/18 11/10/18 History aspirin, buffered 650 mg PO DAILY 11/10/18 11/10/18 History cholecalciferol (vitamin D3) 2,000 unit PO DAILY 11/10/18 11/10/18 History Patient History Medical History Corneal transplant (Resolved 04/14/13) Cholelithiasis (Acute) Surgical History History of cholecystectomy Family History Other No pertinent family history Social History Preferred Language: Russian Communication Ability: Effective Cleaning Specialist Required: No Beliefs That Will Affect Care: Yarsanism Yarsanism Beliefs: "confirmed atheist, recovering Latter-Day" Current Living Situation: Significant Other current occupational status: retired Other Information That Helps Us Care for You: No Feels Safe at Home: Yes Safety Concerns: Feels Safe At This Time Smoking Status: Current every day smoker Tobacco Type: cigarettes Cigarettes Per Day: 40 Do You Dip or Chew Tobacco: No Hx Alcohol Use: Yes Alcohol type: beer and hard liquor Hx Substance Use: No Review of Systems Constitutional: no fever and no chills Eyes: Chronically blind Ear, Nose, Mouth, Throat: no hearing loss Respiratory: no dyspnea Cardiovascular: no chest pain Gastrointestinal: + nausea; no abdominal pain and no vomiting Genitourinary: no difficulty urinating and no genital pain Integumentary: no problem reported Neurologic: no tingling and no numbness Psychiatric: no problem reported Physical Exam Constitutional: WD/WN, vitals as above Eyes: Blind ENMT: Ears: no hearing impairment Neck: normal visual inspection Respiratory: normal respiratory effort; does not use accessory muscles Cardiovascular: Vessels: no JVD Gastrointestinal (Abdomen): Percussion/Palpation: abdomen soft; abdomen nontender Neurologic: not confused Psychiatric: A+Ox3, euthymic affect Genitourinary: bladder normal to palpation Results & Data Vital Signs (Past 12 Hours) Vital Signs Temp Pulse Pulse Resp BP BP BP 11/11/18 06:53 36.8 C 92 H 20 131/87 11/10/18 21:59 36.9 C 95 H 19 149/91 H 11/10/18 21:47 89 18 154/101 H Pulse Ox 11/11/18 06:53 93 11/10/18 21:59 94 11/10/18 21:47 97
[2018-11-11] MEDS: LACTATED RINGER'S 1,000 ML IV SCH (12:53)
--- NOTE | 2018-11-11 15:04 | Hospitalist Progress Note ---
Date of Service November 11, 2018 Assessment & Plan (1) Complicated UTI (urinary tract infection): Obstructive uropathy No signs of sepsis. -Afebrile, Leucocytosis - 22k -IV Rocephin- Day 1 -F/up blood cx-pending, urine cx- no sig growth UVJ Distal Stone Per CT scan3 mm stone distal at UVJ -IVF -Flomax (non compliant with Flomax) -Per discussion with urology- as stone is very distal, likely will pass it spontaneously -Strain urine Hypokalemia Replete Monitor Abnormal CT scan- Incidental right renal mass, possibility of neoplasm considered -Urology and I discussed with patient about the need for further outpatient work up for this. HTN Stable now -Continue with home meds chronic bilateral blindness status post surgery chronic HCV status post Rx Narcotic dependence as per records Hyperglycemia rule out DM Follow up HBA1C Tobacco abuse disorder Nicotine patch DVT prophylaxis. Lovenox subcu Full code Disposition Medical mx in progress Subjective Patient denies any significant flank pain, nausea, vomiting. No fever, chills. No dysuria Physical Exam Constitutional: WD/WN, vitals as above Eyes: Chronic bilateral blindness Respiratory: normal respiratory effort, lungs clear to auscultation Cardiovascular: RRR, no murmur, no edema Gastrointestinal (Abdomen): Percussion/Palpation: abdomen soft; abdomen nontender, no guarding and abdomen not rigid Mild left flank tendernesss Results & Data Vital Signs (Past 12 Hours) Vital Signs Temp Pulse Resp BP Pulse Ox 11/11/18 06:53 36.8 C 92 H 20 131/87 93
[2018-11-12] MEDS: TRAMADOL HCL 50 MG TABLET PO PRN ×2 (01:26→07:54)
[2018-11-12] MEDS: LACTATED RINGER'S 1,000 ML IV SCH (02:06)
[2018-11-12] MEDS: MoRPHine SULFATE 4 MG/ML 1 ML CARP\\VIAL IV PRN ×2 (03:52→10:10)
[2018-11-12 06:46] LABS: Hematocrit (blood only) 43.7 % (42-52); Hemoglobin 15.6 g/dL (14.0-18.0); Mean Corpuscular Hgb Conc 35.7 g/dL (32-36); Mean Corpuscular Volume 93.8 fL (80-100); Mean Platelet Volume 9.9 fL (7.4-10.4); Platelet Count 268 K/uL (130-400); RDW Coefficient of Variation 14.5 % (11.5-14.5); RDW Standard Deviation 49.2 fL (36.4-46.3); Red Blood Count 4.66 M/uL (4.7-6.1); White Blood Count 11.96 K/uL (4.8-10.8)
[2018-11-12 07:21] LABS: BUN Creatinine Ratio 9.6 (10-20); Creatinine Clr Calc Pharmacy 100.8 ml/min; Est GFR (African American) 111.6; Est GFR (Non-African American) 96.3; Potassium 3.7 mmol/L (3.5-5.1)
[2018-11-12] MEDS: TAMSULOSIN HCL 0.4 MG CAP PO SCH (07:54)
[2018-11-12] MEDS: cefTRIAXone SODIUM 2,000 MG in DEXTROSE 5% 50 ML IV SCH (07:54)
[2018-11-12] MEDS: ENOXAPARIN INJ 40 MG/0.4 ML SYR SQ SCH (07:54)
[2018-11-12] MEDS: NICOTINE 21 MG/24 HR TDSY TD SCH (08:02)
[2018-11-12] MEDS: LISINOPRIL 2.5 MG TAB PO SCH (08:02)
--- NOTE | 2018-11-12 11:15 | Urology Progress Note ---
Date of Service November 12, 2018 Assessment & Plan (1) Renal mass: 63YO male with 3mm very distal L UVJ stone, resulting L hydronephrosis, and R renal mass. No stone passage yet per urine strainer however patient is feeling much better, requesting to go home. I think discharge is reasonable given stone's small size and distal position, continue Tamsulosin QHS. UC&S negative. Discussed incidental renal mass finding again with patient today - he is agreeable to close outpatient follow up with our service for further workup. Will also follow his stone symptoms at that time. Will arrange. Thank you for allowing us to participate in the care of this patient. Please contact our service with additional questions/concerns. (2) Renal colic: (3) Ureterolithiasis: Subjective 63YO male with 3mm very distal L UVJ stone, resulting L hydronephrosis, and R renal mass. Patient reports feeling well this morning. No stone in urine strainer per nursing. Patient is not experiencing any significant flank pain. No difficulty with urination. No fever/chills. No nausea/vomiting. Review of Systems Review of Systems: All systems reviewed & are unremarkable except as noted in HPI & below Physical Exam Physical Exam: WN/WD NAD. Chronically blind. Resp effort normal. No JVD, no edema. Abd soft/nontender. A&O x3 appropriate affect. Results & Data Vital Signs (Past 12 Hours) Vital Signs Temp Pulse Resp BP Pulse Ox 11/12/18 06:59 37.1 C 82 20 153/89 H 94
--- NOTE | 2018-11-12 12:00 | Hospitalist Progress Note ---
Date of Service November 12, 2018 Assessment & Plan (1) Complicated UTI (urinary tract infection): Obstructive uropathy No signs of sepsis. -Afebrile, Leucocytosis - 22k--> 11K - almost resolved -IV Rocephin- Day 2--> Discontinue antibiotics as urine shows no significant growth, blood cultures x 2- negative UVJ Distal Stone Per CT scan3 mm stone distal at UVJ Has not passed stone yet, but wants to leave now . If not discharged, will leave AMA, As stone is small and distal , per urology he will pass it spontaneously -IVF -Flomax (was non compliant with Flomax) Hypokalemia Resolved Abnormal CT scan- Incidental right renal mass, possibility of neoplasm considered -Urology and I discussed with patient about the need for further outpatient work up for this. Understands the possibility of neoplasm and importance of follow up, agreeable HTN Stable now -Continue with home meds chronic bilateral blindness status post surgery chronic HCV status post Rx Narcotic dependence as per records Hyperglycemia rule out DM Follow up HBA1C Tobacco abuse disorder Nicotine patch DVT prophylaxis. Lovenox subcu Full code Disposition Adamant about discharge now or he will leave AMA Ok to discharge home today Cleared by urology as well Will likely pass stone spontaneously and no evidence of UTI Subjective 63YO male with 3mm very distal L UVJ stone, resulting L hydronephrosis, and R renal mass. Patient reports feeling well this morning. No stone in urine strainer per nursing. No flank pain, fever, chills Adamant about leaving AMA if I do not discharge him at this minute. Physical Exam Physical Exam: Constitutional WD/WN, vitals as above Eyes Chronic bilateral blindness Respiratory normal respiratory effort, lungs clear to auscultation Cardiovascular RRR, no murmur, no edema Gastrointestinal (Abdomen) Percussion/Palpation: abdomen soft; abdomen nontender, no guarding and abdomen not rigid No flank tenderness Results & Data Vital Signs (Past 12 Hours) Vital Signs Temp Pulse Resp BP Pulse Ox 11/12/18 06:59 37.1 C 82 20 153/89 H 94
--- NOTE | 2018-11-12 12:07 | Discharge Summary ---
Date of Service November 12, 2018 Admission HPI Per Admitting Provider History obtained from patient and records. Medical history significant for hypertension, chronic bilateral blindness, chronic HCV status post Rx, ongoing tobacco abuse, urolithiasis, narcotic dependence as per records Recent confinement July 2014 for possible cholecystitis. Patient signed out AGAINST MEDICAL ADVICE. Patient was seen at the ER 4 days ago for 4 days history achy left flank pain, sweats, chills reminiscent of kidney stone pain. One episode of emesis. CT abdomen pelvis showed a 3 mm calculus at the level of left UVJ with secondary obstructive changes. Patient given IV ceftriaxone at the ER. Admission recommended but patient refused. Poor compliance with outpatient prescriptions of ciprofloxacin and Flomax. Patient return to the ER with intractable symptoms. Medical History as above Surgical History : Eye surgeries, cholecystectomy, carpal tunnel surgery Family History : Diabetes, heart disease, stroke Personal/Social history : 2 packs daily, occasional EtOH intake, disabled Principal Diagnosis 1. Left UVJ Stone, [address] scan- Renal mass, possible neoplasm, needs to be investigated further 3. Hypokalemia 4. UTI ruled out SECONDARY DIAGNOSIS ON DISCHARGE 1. Chronic b/l blindness 2. Chronc HCV Status 3. Narcotic dependence 4. Tobacco abuse disorder Discharge Exam Constitutional WD/WN, vitals as above Eyes Chronic bilateral blindness Respiratory normal respiratory effort, lungs clear to auscultation Cardiovascular RRR, no murmur, no edema Gastrointestinal (Abdomen) Percussion/Palpation: abdomen soft; abdomen nontender, no guarding and abdomen not rigid No flank tenderness Discharge Data Allergies Allergy/AdvReac Type Severity Reaction Status Date / Time amoxicillin Allergy Mild RASH Verified 11/10/18 16:32 Consultations 11/10/18 20:04 ED Decision to Admit Stat 11/10/18 21:06 Consult Urology Routine Ordered Studies 11/10/18 15:23 CT abd pelvis IV con only Stat Hospital Course (1) Complicated UTI (urinary tract infection): Obstructive uropathy No signs of sepsis. -Afebrile, Leucocytosis - 22k--> 11K - almost resolved -IV Rocephin- Day 2--> Discontinue antibiotics as urine shows no significant growth, blood cultures x 2- negative UVJ Distal Stone Per CT scan3 mm stone distal at UVJ Has not passed stone yet, but wants to leave now . If not discharged, will leave AMA, As stone is small and distal , per urology he will pass it spontaneously -IVF -Flomax (was non compliant with Flomax) Hypokalemia Resolved Abnormal CT scan- Incidental right renal mass, possibility of neoplasm considered -Urology and I discussed with patient about the need for further outpatient work up for this. Understands the possibility of neoplasm and importance of follow up, agreeable HTN Stable now -Continue with home meds chronic bilateral blindness status post surgery chronic HCV status post Rx Narcotic dependence as per records Hyperglycemia rule out DM Follow up HBA1C Tobacco abuse disorder Nicotine patch DVT prophylaxis. Lovenox subcu Full code Disposition Adamant about discharge now or he will leave AMA Ok to discharge home today Cleared by urology as well Will likely pass stone spontaneously and no evidence of UTI Total Time Total Time Spent Total Time Spent (In Minutes): 35 minutes Discharge Plan Discharge Items Reason For Visit: COMPLICATED UTI,OBSTRUCTIVE UROPATHY Discharge Diagnosis: 1. Stone, URETEROPELVIC JUNCTION, 3 MM Discharge Goals: Decrease discomfort Activity: Resume your previous activity Non-emergency contact: Primary Care Provider Call non-emergency contact if: your symptoms worsen Follow-up/Referrals: Bill Stern MD [Physician] - 11/19/18 10:45 am Diet: Heart Healthy and Low Sodium (2gm) Addtl Provider Instructions: MEDICATION CHANGES: 1. New medication- Flomax Drink plenty of fluids Strain urine for stone. Likely you will pass it spontaneously Prescriptions: Continued omega 5-bty-hto-fish oil [Fish Oil] 1,000 mg (120 mg-180 mg) Capsule 2 cap PO QAM RF: 0 oxycodone 5 mg tablet 5 mg PO Q6H PRN (Reason: pain) Qty: 14 RF: 0 tamsulosin [Flomax] 0.4 mg capsule 0.4 mg PO DAILY Qty: 10 RF: 0 Unknown Cholesterol Med 1 tab PO DAILY RF: 0 aspirin, buffered 325 mg Tablet 650 mg PO DAILY RF: 0 cholecalciferol (vitamin D3) 2,000 unit Tablet 2,000 unit PO DAILY RF: 0 Discontinued ciprofloxacin HCl 500 mg tablet 500 mg PO BID Qty: 10 RF: 0 Stand-Alone Forms: My [facility] Admission Data Admit Date/Time: 11/10/18 21:04 Attending Provider: Arriaza,Ting S Admit Provider: Rodolfo Chinchilla Primary Care Provider: Pedro Vides Other Providers: Rodolfo Chinchilla ; Hang Koroma II Service: Medical
--- NOTE | 2018-11-15 14:14 | Coding Query ---
UTI WAS RULED OUT Thanks CODING QUERY To promote full compliance with coding requirements relating to patient care, provider participation is requested in all cases of summer analyst uncertainty. Please assist us with the question(s) below: Coding Question(s): Discharge Summary has conflicting documentation. One Section states UTI RULED OUT. and another section states Complicated UTI (urinary tract infection): Obstructive uropathy No signs of sepsis. Below can you please clarify the diganosis? Physician's Response(s): Thank you Meenu Kate Principal Diagnosis: "that condition established after study, to be chiefly responsible for occasioning the admission of the patient to the hospital for care." Co-Existing Principal Diagnosis: "when two or more diagnoses equally meet the criteria for principal diagnosis as determined by the circumstances of admission, diagnostic work up, and/or therapy provided, and the Alphabetic Index, Tabular List, or another coding guideline does not provide sequencing direction, any one of the diagnoses may be sequenced first." "When the physician has documented what appears to be a current diagnosis in the body of the record, but has not included the diagnosis in the final diagnostic statement, the physician should be asked whether the diagnosis should be added." (Source Coding [facility] 2 QTR90. p3-4) ADONIS
--- OUTSIDE RECORDS SUMMARY | 2018-11-15 20:42 | External Medical Summary | Continuity of Care Document ---
:1955 Author Name Carolann Frank Address Unavailable Unavailable , Care Team Providers Name Role Phone Nayana Frank Unavailable [email or web address] Jim [email or web address] Unavailable [email or web address] PCP, UNKNOWN Unavailable Unavailable Robbin Fernandez Unavailable Unavailable Unavailable Unavailable Unavailable Problems Wrist pain, right (719.43) (M25.531) Cyst of kidney, acquired (593.2) (N28.1) Benign colonic polyp (211.3) (K63.5) Pre-operative exam (V72.84) (Z01.818) Atypical chest pain (786.59) (R07.89) Retinal detachment (361.9) (H33.20) Stiffness of wrist joint (719.53) (M25.639) Immunization due (V05.9) (Z23) Low back pain (724.2) (M54.5) Bilateral hip pain (719.45) (M25.551) Sleep-wake schedule disorder, 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 Start: 20-Dec-2013 Refills: 0 oxyCODONE HCl - 10 MG Oral Tablet; TAKE 1 TABLET 4 anyi es daily PRN pain MISAEL Fernandez Quantity: 120 Refills: 0 Fish Oil 1000 MG Oral Capsule Delayed Release; TAKE 2 CAPSULE Daily MISAEL Fernandez Start: 21-Oct-2012 Refills: 0 prednisoLONE Acetate 1 % Ophthalmic Susp ension; INSTILL 1 DROP IN THE RIGHT EYE EVERY HOUR WHILE AWAKE Start: 02-Jan-2016 Refills: 0 Aijrdesf-Xkpqjsyuw-Sirycacr 0.1 % SUSP; INSTILL 1 DROP Daily Start: 02-Jan-2016 Refills: 0 Alphagan P 0.1 % Ophthalmic Solution; IN STILL 1 DROP INTO BOTH EYES EVERY 8 HOURS. Start: 02-Jan-2016 Refills: 0 Multi-Vitamin Oral Tablet; TAKE 1 TABLET DAILY. Start: 01-Nov-2013 Refills: 0 Procedures History of Globe Enucleation Left Status : Completed History of Cholecystectomy Laparoscopic Status: Completed Immunizations Hepatitis B (Engerix) 3 On: 09-Oct-2009 Lot #: [id number], Prevnar 13 Intramuscular Suspension On: 03-Jul-2015 13:44 Lot #: [id number], Surphace [place] HAV, HBV (Twinrix) On: 03-Jul-2015 13:49 Lot #: [id number], [employer] Twinrix 720-20 Intramuscular Suspension On: 03-Apr-2016 11:0 5 Lot #: [id number], [employer] Tdap (Adacel) Comments:approximate ly {date} Social History - Smoking Status Smoker. current status unknown Plan of Treatment Planned Observations Planned Goals not documented Results No Known Results Results not documented
== END 2018-11-12 12:00 | disposition left against medical advice (07) | DRG 694 ==
LOC: ED 14:42 → 4W 21:04

== ENCOUNTER 2018-11-15 13:32 | Observation (INO) ==
[2018-11-15] MEDS ORDERED: KETOROLAC TROMETHAMINE 15 MG/ML VIAL IV ONE (14:18)
[2018-11-15] MEDS ORDERED: fentaNYL citrate 100 MCG/2 ML VIAL IV ONE (14:21)
[2018-11-15 14:55] LABS: Basophils # (auto) 0.08 K/uL (0-0.2); Basophils % (auto) 0.4 %; Eosinophils # (auto) 0.24 K/uL (0-0.5); Eosinophils % (auto) 1.1 %; Hematocrit (blood only) 44.7 % (42-52); Hemoglobin 16.3 g/dL (14.0-18.0); Immature Granulocytes # (auto) 0.09 K/uL (0.00-0.02); Immature Granulocytes % (auto) 0.4 %; Lymphocytes # (auto) 3.31 K/uL (1.2-3.4); Lymphocytes % (auto) 15.1 %; Mean Corpuscular Hgb Conc 36.5 g/dL (32-36); Mean Corpuscular Volume 92.5 fL (80-100); Mean Platelet Volume 9.6 fL (7.4-10.4); Monocytes # (auto) 2.24 K/uL (0.11-0.59); Monocytes % (auto) 10.2 %; Neutrophils % (auto) 72.8 %; Platelet Count 330 K/uL (130-400); RDW Coefficient of Variation 14.3 % (11.5-14.5); RDW Standard Deviation 48.6 fL (36.4-46.3); Red Blood Count 4.83 M/uL (4.7-6.1); White Blood Count 21.96 K/uL (4.8-10.8)
[2018-11-15 15:15] LABS: Appearance Urine Clear (Clear); Bilirubin Urine Negative (Negative); Blood Urine 2+ (Negative); Color Urine Yellow; Glucose Urine UA Negative (Negative); Ketones Urine Negative (Negative); Leukocyte Esterase Urine Negative (Negative); Nitrite Urine Negative (Negative); Protein Urine Negative (Negative); Urobilinogen Urine Negative (Negative)
[2018-11-15 15:26] LABS: Bacteria Urine Automated Negative (Negative); Cast Urine Automated 0 /lpf (0-5); Epithelial Cell Urine Auto 0-5 /lpf (0-5); RBC Urine Automated 0-4 /hpf (0-4)
[2018-11-15 15:34] LABS: BUN Creatinine Ratio 9.9 (10-20); Creatinine Clr Calc Pharmacy 73.9 ml/min; Est GFR (Non-African American) 77.7; Potassium 3.6 mmol/L (3.5-5.1)
--- NOTE | 2018-11-15 15:50 | XRay Report ---
XR KUB/Abdomen 1 view CLINICAL HISTORY: look for 3mm left distal ureteral stone COMPARISON STUDY: CT 11/10/2018 FINDINGS: The soft tissues, psoas shadows, renal outlines and intestinal gas pattern appear normal. T here is no evidence for bowel obstruction. No abnormal abdominal calcifications are seen. The distal left 3 mm calculus is not identified. IMPRESSION: Normal study. No evidence for a distal left ureteral calculus The above report was generated using voice recognition software. It may contain grammatical, syntax or spelling errors. Electronically signed by: Bill Pro M.D. 11/15/2018 3:49 PM
--- NOTE | 2018-11-15 17:12 | Ultrasound Report ---
US renal/blad retro comp HISTORY: 63 years-old Male left distal renal stone follow-up study in a patient with left ureteral c alculus COMPARISON: KUB 11/15/2018, CT abdomen and pelvis 11/10/2018 TECHNIQUE: Multiple real-time sonogram images of the kidneys and urinary bladder were obtained assess ing grayscale appearance and color flow FINDINGS: The right kidney measures 11.8 x 5.3 x 6.0 cm and demonstrates no renal calculi or hydronephrosis. Th ere is a 1.7 x 1.5 x 1.7 cm solid appearing lesion noted about the superior pole right kidney without definite internal flow seen. The left kidney measures 13.0 x 6.7 x 8.0 cm. There is mild left-sided hydronephrosis again noted. No left-sided renal calculi identified. There are a few left renal cysts again seen. The left ureteral jet is not identified. Linear calculus of the left ureterovesicular junction redemo nstrated measuring approximately 8 mm in length. Right ureteral jet is noted. IMPRESSION: 1. Linear calculus about the left ureterovesicular junction redemonstrated measuring approximately 8 mm in length. There is persistent left-sided hydronephrosis. 2. 1.7 cm solid lesion of the superior pole right kidney is concerning for renal cell carcinoma. The above report was generated using voice recognition software. It may contain grammatical, syntax o r spelling errors. Electronically signed by: Doug Ramirez M.D. 11/15/2018 5:11 PM
[2018-11-15] MEDS ORDERED: MoRPHine SULFATE 2 MG/ML CARP IV STA (17:32)
--- NOTE | 2018-11-15 18:30 | Emergency Department Note ---
Entered by Gaurang Mcintyre acting as a scribe for Stanley Carmen DO History of Present Illness General Chief complaint: Kidney Stone Stated complaint: KIDNEY STONE Time Seen by Provider: 11/15/18 14:13 Source: patient History of Present Illness Onset (ago): week(s) (diagnosed about 1.5 weeks ago with kidney stone) Location: left (flank) Pain Consistency: + constant Current Pain Intensity: 8 Quality: + other (left flank pain related to kidney stone) Associated symptoms: + other (straining with urination, pain at tip of penis) The patient is a 63 year old male who presents to the Emergency Room with complaints of constant left flank pain returning this morning. The patient reports that he was diagnosed about 1.5 weeks ago with a 3 mm left-sided distal ureteral kidney stone and was admitted to the hospital for three days. On discharge he was given oxycodone that improved his pain, but he has now finished it and his pain returned. The patient currently rates his pain at 8/10. He reports straining with urination and pain at the tip of his penis. Home Medications Home Medications Medication Instructions Recorded Confirmed Type omega 1-gie-yzv-fish oil [Fish Oil] 2 cap PO QAM 11/06/18 11/15/18 History oxycodone 5 mg PO Q6H PRN #14 tab 11/06/18 11/15/18 Rx tamsulosin [Flomax] 0.4 mg PO DAILY #10 cap 11/06/18 11/15/18 Rx Unknown Cholesterol Med 1 tab PO DAILY 11/10/18 11/15/18 History aspirin, buffered 650 mg PO DAILY 11/10/18 11/15/18 History cholecalciferol (vitamin D3) 2,000 unit PO DAILY 11/10/18 11/15/18 History Allergies Allergy/AdvReac Type Severity Reaction Status Date / Time amoxicillin Allergy Mild RASH Verified 11/15/18 14:36 Past Med/Surg History Medical History Corneal transplant (Resolved 04/14/13) Cholelithiasis (Acute) Surgical History History of cholecystectomy Family History Other No pertinent family history Social History Preferred Language: Kinyarwanda Communication Ability: Effective Beliefs That Will Affect Care: Yazidi Yazidi Beliefs: "confirmed atheist, recovering Church" Current Living Situation: Significant Other current occupational status: retired Feels Safe at Home: Yes Smoking Status: Current every day smoker Tobacco Type: cigarettes Cigarettes Per Day: 40 Hx Alcohol Use: Yes Alcohol type: beer and hard liquor Hx Substance Use: No Review of Systems See HPI for pertinent positives & negatives. and A total of 10 systems reviewed and were otherwise negative Physical Exam Vital Signs Vital Signs - 24 hr 11/15/18 13:43 11/15/18 18:02 Temperature 36.7 C Temperature Source Oral Sepsis Recent Fever Within 48 Hours No Sepsis New/Unexplained Change in Mental Status No Sepsis Action Taken by Nursing No Action Required Pulse Rate 88 Pulse Rate [Apical] 91 H Respiratory Rate 16 24 Blood Pressure 189/109 H Blood Pressure [Right Arm] 163/111 H Blood Pressure Mean 135 Blood Pressure Mean [Right Arm] 128 Pulse Oximetry 95 96 Oxygen Delivery Method Room Air Room Air CONSTITUTIONAL/VITAL SIGNS: Reviewed / noted above. GENERAL: Non-toxic in appearance. INTEGUMENTARY: Warm, dry, and [place]. HEAD: Normocephalic. EYES: without scleral icterus or trauma. ENT/OROPHARYNX: clear and moist. LYMPHADENOPATHY/NECK: Is supple without lymphadenopathy or meningismus. RESPIRATORY: Lungs clear and equal. CARDIOVASCULAR: Regular rate and rhythm. GI/ABDOMEN: Soft and nontender. No organomegaly or pulsatile mass. No rebound or guarding. Normal bowel sounds. EXTREMITIES: Warm and well perfused. BACK: No CVA tenderness. NEUROLOGICAL: Intact without focal deficits. PSYCHIATRIC: normal affect. MUSCULOSKELETAL: Normally developed with good muscle tone. Course 1515: The patient was evaluated in room C8. A complete history and physical examination were performed. 1732: I consulted Dr. Godoy Urology. He states that if the patients pain is under control and he wishes to leave, then it is reasonable to discharge the patient home. 1818: I consulted Rosalba Ferrer PA-C: [facility] Hospitalist. The patient will be reevaluated for hospitalization. Administered Medications Discontinued Medications Fentanyl Citrate (Fentanyl Citrate) 100 mcg IV NOW ONE Stop: 11/15/18 14:22 Last Admin: 11/15/18 14:59 Dose: 100 mcg Documented by: [id number] Ketorolac Tromethamine (Toradol) 15 mg IV NOW ONE Stop: 11/15/18 14:19 Last Admin: 11/15/18 14:59 Dose: 15 mg Documented by: [id number] Morphine Sulfate (Morphine Sulfate) 2 mg IV NOW STA Stop: 11/15/18 17:33 Last Admin: 11/15/18 17:58 Dose: 2 mg Documented by: [id number] Medical Decision Making Differential Diagnosis Differential diagnosis includes: renal colic, appendicitis, diverticulitis, mesenteric ischemia, aortic pathology, infections, inflammatory bowel disease, PUD, biliary pathology, UTI, as well as others were entertained. Medical Records Attestation: I reviewed the patient's medical records. Home Medications Current Medication List: was personally reviewed by me Laboratory Data Attestation: I reviewed the patient's lab results. Result diagrams: 11/15/18 14:40 11/15/18 14:40 Lab Results 11/15/18 11/15/18 11/15/18 Range/Units 14:40 14:40 15:00 WBC 21.96 H (4.8-10.8) K/uL RBC 4.83 (4.7-6.1) M/uL Hgb 16.3 (14.0-18.0) g/dL Hct 44.7 (42-52) % MCV 92.5 (80-100) fL MCH 33.7 (25-34) pg MCHC 36.5 H (32-36) g/dL RDW Std Deviation 48.6 H (36.4-46.3) fL RDW Coeff of Ned 14.3 (11.5-14.5) % Plt Count 330 (130-400) K/uL MPV 9.6 (7.4-10.4) fL Immature Gran % (Auto) 0.4 % Neut % (Auto) 72.8 % Lymph % (Auto) 15.1 % [place] % (Auto) 10.2 % Eos % (Auto) 1.1 % Baso % (Auto) 0.4 % Immature Gran # (Auto) 0.09 H (0.00-0.02) K/uL Neut # (Auto) 16.00 H (1.4-6.5) K/uL Lymph # (Auto) 3.31 (1.2-3.4) K/uL [place] # (Auto) 2.24 H (0.11-0.59) K/uL Eos # (Auto) 0.24 (0-0.5) K/uL Baso # (Auto) 0.08 (0-0.2) K/uL Sodium 138 (136-145) mmol/L Potassium 3.6 (3.5-5.1) mmol/L Chloride 108 H (98-107) mmol/L Carbon Dioxide 24 (21-32) mmol/L Anion Gap 6.0 (3-11) BUN 10 (7-18) mg/dl Creatinine 1.01 (0.6-1.4) mg/dl Est Cr Clr Drug Dosing 73.9 ml/min Est GFR ( Amer) 90.0 Est GFR (Non-Af Amer) 77.7 BUN/Creatinine Ratio 9.9 L (10-20) Glucose 113 H (70-99) mg/dl Calcium 9.0 (8.5-10.1) mg/dl Urine Color Yellow Urine Appearance Clear (Clear) Urine pH 5.0 (4.5-7.5) Ur Specific [place] 1.010 (1.000-1.030) Urine Protein Negative (Negative) Urine Glucose (UA) Negative (Negative) Urine Ketones Negative (Negative) Urine Blood 2+ H (Negative) Urine Nitrite Negative (Negative) Urine Bilirubin Negative (Negative) Urine Urobilinogen Negative (Negative) Ur Leukocyte Esterase Negative (Negative) Urine WBC (Auto) 1-5 (0-5) /hpf Urine RBC (Auto) 0-4 (0-4) /hpf U Hyaline Cast (Auto) 0 (0-5) /lpf U Epithel Cells (Auto) 0-5 (0-5) /lpf Urine Bacteria (Auto) Negative (Negative) Imaging Data Radiologist's Impression: Radiology results as stated below per my review and the radiologist's interpretation: XR KUB/Abdomen 1 view CLINICAL HISTORY: look for 3mm left distal ureteral stone COMPARISON STUDY: CT 11/10/2018 FINDINGS: The soft tissues, psoas shadows, renal outlines and intestinal gas pattern appear normal. There is no evidence for bowel obstruction. No abnormal abdominal calcifications are seen. The distal left 3 mm calculus is not identified. IMPRESSION: Normal study. No evidence for a distal left ureteral calculus The above report was generated using voice recognition software. It may contain grammatical, syntax or spelling errors. Electronically signed by: Bill Pro M.D. 11/15/2018 3:49 PM US renal/blad retro comp HISTORY: 63 years-old Male left distal renal stone follow-up study in a patient with left ureteral calculus COMPARISON: KUB 11/15/2018, CT abdomen and pelvis 11/10/2018 TECHNIQUE: Multiple real-time sonogram images of the kidneys and urinary bladder were obtained assessing grayscale appearance and color flow FINDINGS: The right kidney measures 11.8 x 5.3 x 6.0 cm and demonstrates no renal calculi or hydronephrosis. There is a 1.7 x 1.5 x 1.7 cm solid appearing lesion noted about the superior pole right kidney without definite internal flow seen. The left kidney measures 13.0 x 6.7 x 8.0 cm. There is mild left-sided hydronephrosis again noted. No left-sided renal calculi identified. There are a few left renal cysts again seen. The left ureteral jet is not identified. Linear calculus of the left ureterovesicular junction redemonstrated measuring approximately 8 mm in length. Right ureteral jet is noted. IMPRESSION: 1. Linear calculus about the left ureterovesicular junction redemonstrated measuring approximately 8 mm in length. There is persistent left-sided hydronephrosis. 2. 1.7 cm solid lesion of the superior pole right kidney is concerning for renal cell carcinoma. The above report was generated using voice recognition software. It may contain grammatical, syntax or spelling errors. Electronically signed by: Doug Ramirez M.D. 11/15/2018 5:11 PM Blood Pressure Blood Pressure Findings: Elevated blood pressure Blood Pressure Disposition: further management by hospitalist SIMONA Carballo This is a 63-year-old male who presents to the ED with a chief complaint of renal colic. The patient was admitted at the end of last week and is ultimately discharged over the weekend. He states that he ran out of his pain medication but it does not seem to have helped him much and his pain persist. He states that he does not want to leave until the kidney stone is addressed. The patient had a 3 mm distal left ureteral stone on a CT scan at that time. Ultrasound today reveals continuation of the left renal calculus although measured 8 mm today. There was persistent left-sided hydronephrosis. He also has renal cell carcinoma measuring 1.7 cm on the right. The white blood cell count was 21.98. Complete metabolic panel was unremarkable and urine did not show infection. The patient was provided IV fentanyl, IV Toradol, and IV morphine for his pain. Because of persistent pain, I spoke with the urologist on-call. He recommend the patient be seen for inpatient evaluation and will likely need a stent or other treatment modality. I spoke with the hospitalist, who will see the patient. Impression & Plan Renal colic The scribe's documentation has been prepared under my direction and personally reviewed by me in its entirety. I confirm that the note above accurately reflects all work, treatment, procedures, and medical decision making performed by me.
--- NOTE | 2018-11-15 19:15 | History & Physical Report ---
Date of Service November 15, 2018 Assessment & Plan (1) Renal colic: (2) Ureteral stone: Pt presented today with return of L flank pain Was seen in ER on 11/06/18 and dx with 3 mm calculus at the level of the left ureterovesical junction with secondary obstructive changes on CT scan. He was sent home on oxycodone, cipro, flomax. Pt states that he mixed up his cipro and flomax. He returned on 11/10/18 and was admitted and discharged on 11/12/18. Had leukocytosis at 22K upon admission which down trended to 11.9 upon discharge. He was treated with Rocephin x 2 doses and urine culture was probable contamination and preliminary blood cultures without growth. Urology had seen pt and suspected pt would spontaneously pass stone. Pt reports was pain free upon discharge and remained pain free until today. Today started with L flank pain with radiation to L groin with dysuria. Denies fever/chills, N/V -Today in ER pt was afebrile, P: 88, R: 16, BP: 189/109, 95% on RA. WBC: 21, Hgb: 16, BUN: 10, Cr: 1.0, GFR: 77. UA:2+blood, negative nitrites, leuk esterase and bacteria. -Today: KUB Normal study. No evidence for a distal left ureteral calculus -RENAL ULTRASOUND: Linear calculus about the left ureterovesicular junction redemonstrated measuring approximately 8 mm in length. There is persistent left- sided hydronephrosis. 1.7 cm solid lesion of the superior pole right kidney is concerning for renal cell carcinoma. -was given fentanyl 100mcg, toradol 15mg, morphine 2mg IV in ER -urine culture -will hold on further antibiotics at this time -IVF -morphine, oxycodone prn pain -strain urine -flomax HS -npo midnight in case of procedure -urology consult, appreciate recommendations -repeat CBC, BMP in am (3) HTN (hypertension): Pt not on BP medications outpatient Likely elevated BP secondary to pain -monitor BP response to pain control (4) Renal mass: Pt with noted 1.7 cm solid lesion of the superior pole right kidney is concerning for renal cell carcinoma on renal u/s today as well as noted on CT abd/pelvis on 11/10/18 -pt to have outpatient follow up, this was previously discussed with pt during last admission (5) Tobacco use: -tobacco cessation recommended -nicotine patch (6) Chronic hepatitis C: Reported completed outpatient Rx treatment DVT Prophylaxis -SCDs Full Code as per discussion with pt Follows with Dr Vides for routine care Pt was seen with Dr Reagan. See addendum History of Present Illness Chief Complaint: L flank pain Primary Care Provider: Pedro Vides MD Pt is 63 y/o M with PMH chronic blindness, chronic HCV s/p treatment, tobacco use, h/o drug abuse presented to ER with c/o L flank pain. Pt was initially seen in ER on 11/06/18 and dx with 3 mm calculus at the level of the left ureterovesical junction with secondary obstructive changes on CT scan. He was sent home on oxycodone, cipro, flomax. Pt states that he mixed up his cipro and flomax. He returned on 11/10/18 and was admitted and discharged on 11/12/18. Had leukocytosis at 22K upon admission which down trended to 11.9 upon discharge. He was treated with Rocephin x 2 doses and urine culture was probable contamination and preliminary blood cultures without growth. Urology had seen pt and conservative measures where taken. Pt reports was pain free upon discharge and remained pain free until today. Today started with L flank pain with radiation to L groin with dysuria. He is unsure if any hematuria or if had passed any stone. He denies urinary retention, nausea, vomiting. Has been eating and drinking well. Chronic cough, denies worsening. Denies fever/chills, diaphoresis, diarrhea, constipation, RENE, dizziness, syncope, vision changes, neck pain, CP, SOB, orthopnea, palpitations, sore throat, choking, otalgia, rhinorrhea, paresthesias, weakness, extremity edema. Allergies Allergy/AdvReac Type Severity Reaction Status Date / Time amoxicillin Allergy Mild RASH Verified 11/15/18 14:36 Home Medications Home Medications Medication Instructions Recorded Confirmed Type omega 2-dcm-coh-fish oil [Fish Oil] 2 cap PO QAM 11/06/18 11/15/18 History tamsulosin [Flomax] 0.4 mg PO DAILY #10 cap 11/06/18 11/15/18 Rx aspirin, buffered 650 mg PO DAILY 11/10/18 11/15/18 History cholecalciferol (vitamin D3) 2,000 unit PO DAILY 11/10/18 11/15/18 History Past Med/Surg History Medical History Tobacco use (Chronic) Chronic hepatitis C (Chronic) Blind (Chronic) Corneal transplant (Chronic 04/14/13) Cholelithiasis (Resolved) Surgical History History of cholecystectomy (Chronic) Social History Preferred Language: Niuean Communication Ability: Effective 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 Operator Required: No Beliefs That Will Affect Care: Presybeterian Presybeterian Beliefs: "confirmed atheist, recovering Denominational" Current Living Situation: Significant Other Current Living Situation Comment: s/o and caregivere current occupational status: retired Feels Safe at Home: Yes Safety Concerns: Feels Safe At This Time Smoking Status: Current every day smoker Tobacco Type: cigarettes Cigarettes Per Day: 40 Do You Dip or Chew Tobacco: No Hx Alcohol Use: Yes Alcohol type: beer and hard liquor Alcohol Intake Frequency Comment: 12 drinks throughout a month Hx Substance Use: Yes substance use type: marijuana Substance Use Type Other:: marijuana use daily. Past hx rx drug abuse and meth, cocaine use Review of Systems Review of Systems: All systems reviewed & are unremarkable except as noted in HPI & below Physical Exam Physical Exam: General: no acute distress, WDWN Head: normocephalic, atraumatic Eyes: +eye prosthesis bilaterally ENT: normal inspection external ears, nose, mucous membranes moist Neck: supple, trachea midline Lungs: clear, no respiratory distress, no wheezing/rhonchi/rales CV: RRR, no murmur, no JVD, no pretibial edema Abd: normal BS, soft, +tenderness to palpation L flank, LLQ, no other abdominal tenderness to palpation, no CVA tenderness to palpation Ext: no cyanosis, no calf tenderness Neuro: A&O x 3, no focal deficits noted, normal affect Skin: warm, dry Results & Data Vital Signs (Past 12 Hours) Vital Signs Temp Pulse Pulse Resp BP BP Pulse Ox 11/15/18 18:02 91 H 24 163/111 H 96 11/15/18 13:43 36.7 C 88 16 189/109 H 95 Laboratory Results Short CBC 11/15/18 Range/Units 14:40 WBC 21.96 H (4.8-10.8) K/uL Hgb 16.3 (14.0-18.0) g/dL Hct 44.7 (42-52) % Plt Count 330 (130-400) K/uL BMP 11/15/18 14:40 Sodium 138 Potassium 3.6 Chloride 108 H Carbon Dioxide 24 BUN 10 Creatinine 1.01 Glucose 113 H Calcium 9.0 Urine 11/15/18 Range/Units 15:00 Urine Color Yellow Urine Appearance Clear (Clear) Urine pH 5.0 (4.5-7.5) Ur Specific [place] 1.010 (1.000-1.030) Urine Protein Negative (Negative) Urine Glucose (UA) Negative (Negative) Diagnostic Findings KUB XRAY: IMPRESSION: Normal study. No evidence for a distal left ureteral calculus RENAL ULTRASOUND: IMPRESSION: 1. Linear calculus about the left ureterovesicular junction redemonstrated measuring approximately 8 mm in length. There is persistent left-sided hydronephrosis. 2. 1.7 cm solid lesion of the superior pole right kidney is concerning for renal cell carcinoma. Supervising Physician Co-Signing Physician Notes Care coordinated with Anne MONGE. Agree with above note. Patient seen and examined. Please refer to her notes for full details. Vital signs reviewed. Physical exam: General exam: Alert and oriented. Not in acute distress. CVS: S1 and S2 heard, regular rate and rhythm, no murmurs. RS: Clear to auscultation, no wheezing or crackles. ABD: Soft, bowel sounds present, Left CVA tenderness present , no distention. COLOR DIPPER: Nonfocal. EXT: No edema, no erythema. Labs: Reviewed. Assessment and plan: 63M who was recently in hospital for left renal colic signed out AMA presents again with left flank pain and Ultrasound showing 8mm left UVJ stone Left renal colic pain control iv fluids, npo urology consult Right renal mass needs followup Leukocytosis afebrile UA negative will monitor Other diagnosis and plan of care as per []. Jose Manuel platt MD.
[2018-11-15] MEDS ORDERED: ACETAMINOPHEN 325 MG TAB PO PRN (19:41)
[2018-11-15] MEDS ORDERED: ONDANSETRON INJ 2 MG/ML 2 ML VIAL IV PRN (19:41)
[2018-11-15] MEDS ORDERED: MoRPHine SULFATE 4 MG/ML 1 ML CARP\\VIAL ONE (20:20)
[2018-11-15] MEDS: MoRPHine SULFATE 4 MG/ML 1 ML CARP\\VIAL IV PRN (20:24)
[2018-11-15] MEDS: SODIUM CHLORIDE 0.9% 1000ML 1,000 ML IV SCH (20:33)
[2018-11-15] MEDS: OXYCODONE HCL IR 5 MG TAB (IMMEDIATE RELEASE) PO PRN (21:26)
[2018-11-15] MEDS: NICOTINE 21 MG/24 HR TDSY TD SCH (21:27)
[2018-11-15] MEDS: DOCUSATE SODIUM/SENNA 50/8.6MG TAB PO SCH (21:27)
[2018-11-15] MEDS: TAMSULOSIN HCL 0.4 MG CAP PO SCH (21:27)
--- OUTSIDE RECORDS SUMMARY | 2018-11-15 23:21 | External Medical Summary | Continuity of Care Document ---
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.23) Legally blind (369.4) (H54.8) Hepatitis C virus infection (070.70) (B19.20) Urinary frequency (788.41) (R35.0) Cannabis abuse, continuous (305.21) (F12.10) Paresthesias/numbness (782.0) (R20.9) Colon cancer screening (V76.51) (Z12.11) Seborrheic keratosis (702.19) (L82.1) Wrist pain, right (719.43) (M25.531) Neoplasm of uncertain behavior (238.9) (D48.9) Immunization due (V05.9) (Z23) History of prostate cancer (V10.46) (Z85.46) Cyst of kidney, acquired (593.2) (N28.1) Benign colonic polyp (211.3) (K63.5) Pre-operative exam (V72.84) (Z01.818) Atypical chest pain (786.59) (R07.89) Retinal detachment (361.9) (H33.20) Stiffness of wrist joint (719.53) (M25.639) Allergies and Adverse Reactions Penicillins (Allergy) Medications Multi-Vitamin Oral Tablet; TAKE 1 TABLET DAILY. Start: 01-Nov-2013 Refills: 0 Fish Oil 1000 MG Oral Capsule Delayed Release; TAKE 2 CAPSULE Daily MISAEL Fernandez Start: 21-Oct-2012 Refills: 0 Alphagan P 0.1 % Ophthalmic Solution; IN STILL 1 DROP INTO BOTH EYES EVERY 8 HOURS. Start: 02-Jan-2016 Refills: 0 Gzqcmayl-Ilccmxecz-Dgmjegcn 0.1 % SUSP; INSTILL 1 DROP Daily Start: 02-Jan-2016 Refills: 0 prednisoLONE Acetate 1 % Ophthalmic Susp ension; INSTILL 1 DROP IN THE RIGHT EYE EVERY HOUR WHILE AWAKE Start: 02-Jan-2016 Refills: 0 oxyCODONE HCl - 10 MG Oral Tablet; TAKE 1 TABLET 4 anyi es daily PRN pain MISAEL Fernandez Jolly Quantity: 120 Refills: 0 Aspirin 325 MG Oral Tablet; TAKE 1 TABLET TWICE DAILY. Start: 20-Dec-2013 Refills: 0 Procedures History of Globe Enucleation Left Status : Completed History of Cholecystectomy Laparoscopic Status: Completed Immunizations Hepatitis B (Engerix) 3 On: 09-Oct-2009 Lot #: [id number], Prevnar 13 Intramuscular Suspension On: 03-Jul-2015 13:44 Lot #: [id number], [employer] HAV, HBV (Twinrix) On: 03-Jul-2015 13:49 Lot #: [id number], [employer] Twinrix 720-20 Intramuscular Suspension On: 03-Apr-2016 11:0 5 Lot #: [id number], [employer] Tdap (Adacel) Comments:approximate ly {date} Social History - Smoking Status Smoker. current status unknown Plan of Treatment Planned Observations Planned Goals not documented Results No Known Results Results not documented
[2018-11-16] MEDS: MoRPHine SULFATE 4 MG/ML 1 ML CARP\\VIAL IV PRN ×6 (00:33→21:24)
[2018-11-16] MEDS ORDERED: CIPROFLOXACIN 400 MG/200 ML BAG IV SCH (06:00)
[2018-11-16 06:11] LABS: Basophils # (auto) 0.06 K/uL (0-0.2); Basophils % (auto) 0.3 %; Eosinophils # (auto) 0.31 K/uL (0-0.5); Eosinophils % (auto) 1.4 %; Hematocrit (blood only) 43.9 % (42-52); Hemoglobin 15.1 g/dL (14.0-18.0); Immature Granulocytes % (auto) 0.5 %; Lymphocytes # (auto) 3.25 K/uL (1.2-3.4); Lymphocytes % (auto) 14.7 %; Mean Corpuscular Hgb Conc 34.4 g/dL (32-36); Mean Platelet Volume 9.8 fL (7.4-10.4); Monocytes % (auto) 11.8 %; Neutrophils # (auto) 15.74 K/uL (1.4-6.5); Neutrophils % (auto) 71.3 %; Platelet Count 306 K/uL (130-400); RDW Coefficient of Variation 14.4 % (11.5-14.5); RDW Standard Deviation 49.1 fL (36.4-46.3); Red Blood Count 4.67 M/uL (4.7-6.1); White Blood Count 22.06 K/uL (4.8-10.8)
[2018-11-16 06:42] LABS: BUN Creatinine Ratio 11.8 (10-20); Calcium 8.4 mg/dl (8.5-10.1); Creatinine Clr Calc Pharmacy 85.8 ml/min; Est GFR (Non-African American) 90.6; Potassium 3.7 mmol/L (3.5-5.1)
[2018-11-16] MEDS: NICOTINE 21 MG/24 HR TDSY TD SCH (08:06)
--- NOTE | 2018-11-16 08:11 | Urology Consultation ---
Date of Consultation November 16, 2018 Assessment & Plan (1) Ureteral stone: 62yo M with persistent 3mm L UVJ stone, mild hydro. Clinically stable, but still requiring IV therapy for pain control. Failed outpatient, conservative measures x2. Maintain NPO status. Continue IV fluids. Findings reviewed with Dr. Godoy and Dr. York. Given his persistent L renal colic in the context of an obstructing UVJ stone, will proceed with OR for cysto, Left RPG and Left stent placement, possible ureteroscopy, laser litho, stone basketing depending on findings. Risks and benefits to be reviewed with patient by or Dr. York. OR notified. Preoperative CXR and EKG ordered. Will cover with IV Ciprofloxacin preoperatively. History of Present Illness Reason for Consultation: stones Requesting Physician: Dr. Arriaza Attending Physician: Ting Arriaza History of Present Illness 63yo M with known 3mm L UVJ stone with mild hydro, admitted last week for pain control. Readmitted last evening for L flank pain and pain in the tip of her penis last evening. Pt also noted to have a leukocytosis of 22,000. Cr stable at 0.87, UA negative except RBC. Pt denies fevers/chills. No nausea, vomiting. Pain mildly controlled with IV pain control. Takes THC for glaucoma, states he doesn't have nausea due to this. Allergies Allergy/AdvReac Type Severity Reaction Status Date / Time amoxicillin Allergy Mild RASH Verified 11/15/18 14:36 Home Medications Home Medications Medication Instructions Recorded Confirmed Type omega 1-vwp-gby-fish oil [Fish Oil] 2 cap PO QAM 11/06/18 11/15/18 History tamsulosin [Flomax] 0.4 mg PO DAILY #10 cap 11/06/18 11/15/18 Rx aspirin, buffered 650 mg PO DAILY 11/10/18 11/15/18 History cholecalciferol (vitamin D3) 2,000 unit PO DAILY 11/10/18 11/15/18 History Patient History Medical History Tobacco use (Chronic) Chronic hepatitis C (Chronic) Blind (Chronic) Corneal transplant (Chronic 04/14/13) Cholelithiasis (Resolved) Surgical History History of cholecystectomy (Chronic) Family History Other Cancer Coronary heart disease Diabetes Stroke Social History Preferred Language: Central African Communication Ability: Effective Security Rep Required: No Beliefs That Will Affect Care: Orthodox Orthodox Beliefs: "confirmed atheist, recovering Moravian" Current Living Situation: Significant Other Current Living Situation Comment: s/o and caregivere current occupational status: retired Feels Safe at Home: Yes Safety Concerns: Feels Safe At This Time Smoking Status: Current every day smoker Tobacco Type: cigarettes Cigarettes Per Day: 40 Do You Dip or Chew Tobacco: No Hx Alcohol Use: Yes Alcohol type: beer and hard liquor Alcohol Intake Frequency Comment: 12 drinks throughout a month Hx Substance Use: Yes substance use type: marijuana Substance Use Type Other:: marijuana use daily. Past hx rx drug abuse and meth, cocaine use Review of Systems Constitutional: no fever and no chills Eyes: no blind spots Ear, Nose, Mouth, Throat: no ear discharge and no ear trauma Respiratory: no cough and no dyspnea Cardiovascular: no chest pain and no chest pain with activity Gastrointestinal: no abdominal pain, no nausea and no vomiting Genitourinary: no dysuria, no urinary frequency and no nocturia Musculoskeletal: no back pain Integumentary: no acne and no rash Neurologic: no falls, no numbness and no paresthesia Psychiatric: no hopelessness Endocrine: no polydipsia and no polyphagia Hematologic / Lymphatic: no coagulopathy Physical Exam Constitutional: no acute distress Eyes: no nystagmus ENMT: Ears: no hearing impairment Neck: + trachea not midline Respiratory: no respiratory distress and does not use accessory muscles Cardiovascular: Vessels: no JVD Chest (Breasts): Chest: no mass Gastrointestinal (Abdomen): Inspection/Auscultation: abdomen not distended and no abdominal edema Percussion/Palpation: abdomen soft; abdomen nontender Musculoskeletal: Spine: + limited cervical ROM Skin: no rashes and no ulcers Neurologic: CN's II-XI intact bilaterally Motor/Sensory: no tremor Psychiatric: Orientation: alert and oriented x 3 Eye Contact: good eye contact Genitourinary: no CVA tenderness Lymphatic: no lymphadenopathy Results & Data Vital Signs (Past 12 Hours) Vital Signs Temp Pulse Resp BP BP Pulse Ox 11/16/18 06:54 36.8 C 99 H 18 141/97 H 94 11/16/18 00:40 36.9 C 85 18 155/92 H 92 Laboratory Results Laboratory Results - last 48 hr 11/15/18 11/15/18 11/15/18 14:40 14:40 15:00 WBC 21.96 H RBC 4.83 Hgb 16.3 Hct 44.7 MCV 92.5 MCH 33.7 MCHC 36.5 H RDW Std Deviation 48.6 H RDW Coeff of Ned 14.3 Plt Count 330 MPV 9.6 Immature Gran % (Auto) 0.4 Neut % (Auto) 72.8 Lymph % (Auto) 15.1 Coke % (Auto) 10.2 Eos % (Auto) 1.1 Baso % (Auto) 0.4 Immature Gran # (Auto) 0.09 H Neut # (Auto) 16.00 H Lymph # (Auto) 3.31 Coke # (Auto) 2.24 H Eos # (Auto) 0.24 Baso # (Auto) 0.08 Sodium 138 Potassium 3.6 Chloride 108 H Carbon Dioxide 24 Anion Gap 6.0 BUN 10 Creatinine 1.01 Est Cr Clr Drug Dosing 73.9 Est GFR ( Amer) 90.0 Est GFR (Non-Af Amer) 77.7 BUN/Creatinine Ratio 9.9 L Glucose 113 H Calcium 9.0 Urine Color Yellow Urine Appearance Clear Urine pH 5.0 Ur Specific [place] 1.010 Urine Protein Negative Urine Glucose (UA) Negative Urine Ketones Negative Urine Blood 2+ H Urine Nitrite Negative Urine Bilirubin Negative Urine Urobilinogen Negative Ur Leukocyte Esterase Negative Urine WBC (Auto) 1-5 Urine RBC (Auto) 0-4 U Hyaline Cast (Auto) 0 U Epithel Cells (Auto) 0-5 Urine Bacteria (Auto) Negative 11/16/18 11/16/18 05:37 05:37 WBC 22.06 H RBC 4.67 L Hgb 15.1 Hct 43.9 MCV 94.0 MCH 32.3 MCHC 34.4 RDW Std Deviation 49.1 H RDW Coeff of Ned 14.4 Plt Count 306 MPV 9.8 Immature Gran % (Auto) 0.5 Neut % (Auto) 71.3 Lymph % (Auto) 14.7 Coke % (Auto) 11.8 Eos % (Auto) 1.4 Baso % (Auto) 0.3 Immature Gran # (Auto) 0.10 H Neut # (Auto) 15.74 H Lymph # (Auto) 3.25 Coke # (Auto) 2.60 H Eos # (Auto) 0.31 Baso # (Auto) 0.06 Sodium 143 Potassium 3.7 Chloride 112 H Carbon Dioxide 26 Anion Gap 6.0 BUN 10 Creatinine 0.87 Est Cr Clr Drug Dosing 85.8 Est GFR ( Amer) 105.0 Est GFR (Non-Af Amer) 90.6 BUN/Creatinine Ratio 11.8 Glucose 83 Calcium 8.4 L Urine Color Urine Appearance Urine pH Ur Specific [place] Urine Protein Urine Glucose (UA) Urine Ketones Urine Blood Urine Nitrite Urine Bilirubin Urine Urobilinogen Ur Leukocyte Esterase Urine WBC (Auto) Urine RBC (Auto) U Hyaline Cast (Auto) U Epithel Cells (Auto) Urine Bacteria (Auto)
[2018-11-16] MEDS: SODIUM CHLORIDE 0.9% 1000ML 1,000 ML IV SCH (09:11)
--- NOTE | 2018-11-16 13:04 | Hospitalist Progress Note ---
Date of Service November 16, 2018 Assessment & Plan (1) Renal colic: (2) Ureteral stone: Pt re admitted for recurrent left flank/lower quadrant pain Was seen in ER on 11/06/18 and dx with 3 mm calculus at the level of the left ureterovesical junction with secondary obstructive changes on CT scan. He was sent home on oxycodone, cipro, flomax. Pt states that he mixed up his cipro and flomax and did not take his flomax. He returned on 11/10/18 to 11/12/18. Had leukocytosis at 22K upon admission which down trended to 11.9 upon discharge. He was treated with Rocephin x 2 doses and urine culture was probable contamination and preliminary blood cultures without growth. Urology had seen pt and suspected pt would spontaneously pass stone. Patient was adamant about leaving AMA if not discharged. He in fact even left without his discharge paper work as didnt want to wait even for 30 minutes. Pt reports was pain free upon discharge and remained pain free until day of admission. -In ER pt was afebrile, KUB Normal study. No evidence for a distal left ureteral calculus -RENAL ULTRASOUND: Linear calculus about the left ureterovesicular junction redemonstrated measuring approximately 8 mm in length. There is persistent left- sided hydronephrosis. 1.7 cm solid lesion of the superior pole right kidney is concerning for renal cell carcinoma. -Per urology, plan is for cysto, Left RPG and left stent placement today -No indication for antibiotics, but receiving Cipro pre operatively per urology. Does have leucocytosis 22k, likely stress reaction -Pain control- IV Morphine PRN, Oxycodone PRN (prior hx of abuse, so cautious with narcotic use) -IVF, Flomax -Appreciate Urology inputs (3) HTN (hypertension): BP elevated in ED, now better -Monitor (4) Renal mass: Pt with noted 1.7 cm solid lesion of the superior pole right kidney is concerning for renal cell carcinoma on renal u/s as well as noted on CT abd/pelvis on 11/10/18 -pt to have outpatient follow up, this was previously discussed with pt during last admission and again discussed during this admission -He understands the importance of follow up (5) Tobacco use: -tobacco cessation recommended -nicotine patch (6) Chronic hepatitis C: Reported completed outpatient Rx treatment DVT Prophylaxis -SCDs FULL CODE as per discussion with pt Follows with Dr Vides for routine care DISPOSITION Expected discharge home when stable For left stent placement today Subjective Patient continues to c/o pain in left groin. Denies any nausea, vomiting, fever, chills, back pain. Does c/o some dysuria , freq Physical Exam Physical Exam: GENERAL- AAOX3, No acute distress EYES-LEGALLY BLIND BILATERALLY LUNGS- Air entry bilaterally equal. No rales, rhonchi, crackles, wheezes heard. HEART- Regular rate and rhythm. No murmurs ABDOMEN- Soft, TENDERNESS IN LLQ, non distended, Bowel sounds heard. EXTREMITIES- no edema Results & Data Vital Signs (Past 12 Hours) Vital Signs Temp Pulse Resp BP Pulse Ox 11/16/18 06:54 36.8 C 99 H 18 141/97 H 94
--- NOTE | 2018-11-16 14:51 | Anesthesiology Consultation ---
Date of Service November 16, 2018 Assessment & Plan Chart Review Chart Review: Acceptable Risk for Surgery and Patient NOT seen in Pre Admission Testing Consults Requested none ASA ASA3 Proposed Anesthesia Anesthesia Type: General History Surgery Operation Date: 11/16/18 16:30 Proposed Procedures p Cystoscopy Left RetrogradePyelogram, Stent Placement, Possible Ureteroscopy, Laser Lithotripsy - Caleb Godoy MD Height/Weight Height: 5 ft 7 in Weight: 80 kg Allergies Allergy/AdvReac Type Severity Reaction Status Date / Time amoxicillin Allergy Mild RASH Verified 11/15/18 14:36 Medications Home Medications Medication Instructions Recorded Confirmed Last Taken omega 3-sod-npo-fish oil [Fish Oil] 2 cap PO QAM 11/06/18 11/15/18 Unknown tamsulosin [Flomax] 0.4 mg PO DAILY #10 cap 11/06/18 11/15/18 11/07/18 aspirin, buffered 650 mg PO DAILY 11/10/18 11/15/18 Unknown cholecalciferol (vitamin D3) 2,000 unit PO DAILY 11/10/18 11/15/18 Unknown Active Medications Generic Name Dose Route Start Last Admin Trade Name Freq PRN Reason Stop Dose Admin Sodium Chloride 1,000 mls @ 80 mls/hr 11/15/18 19:41 11/16/18 09:11 Nss 1000ml IV 11/16/18 20:40 80 mls/hr .[id number] PRISCILA Administration Miscellaneous 1 ea 11/16/18 08:59 11/16/18 08:06 Remove Nicoderm Patch N/A 12/16/18 08:58 1 ea HS PRISCILA Administration Morphine Sulfate 3 mg 11/15/18 19:41 11/16/18 14:17 Morphine Sulfate IV 11/29/18 19:40 3 mg Q3H PRN Administration Moderate Pain Nicotine 21 mg 11/15/18 19:41 11/16/18 08:06 Nicoderm Cq TD 12/15/18 19:40 21 mg QAM PRISCILA Administration Oxycodone HCl 5 mg 11/15/18 19:41 11/15/18 21:26 Roxicodone Immediate Rel PO 11/29/18 19:40 5 mg Q6H PRN Administration Pain Senna/Docusate Sodium 2 tab 11/15/18 21:00 11/15/18 21:27 Senokot S PO 12/15/18 20:59 2 tab HS PRISCILA Administration Tamsulosin HCl 0.4 mg 11/15/18 21:00 11/15/18 21:27 Flomax PO 12/15/18 20:59 0.4 mg HS PRISCILA Administration NPO Date Last Intake of Fluids: 11/15/18 Time Last Intake of Fluids: 23:59 Date Last Intake of Solids: 11/15/18 Time Last Intake of Solids: 23:59 Past Medical History Medical History Tobacco use (Chronic) Chronic hepatitis C (Chronic) Blind (Chronic) Corneal transplant (Chronic 04/14/13) Cholelithiasis (Resolved) Marijuana smoker Exercise / Class Metabolic Activity III < 4 Walking/Shop/Light housework Past Family History Family History Other Cancer Coronary heart disease Diabetes Stroke Past Surgical History Surgical History History of cholecystectomy (Chronic) Past Anesthesia History No Hx of Anesthesia Complications and No Family Hx of Anesthesia Complications History of PONV No Hx of PONV, No Family Hx of PONV and No Hx of Motion Sickness Social History Smoking Status: Current every day smoker tobacco type: cigarettes Smoking cigarettes per day: 40 Do You Dip or Chew Tobacco: No Hx Alcohol Use: Yes Alcohol type: beer and hard liquor alcohol intake frequency: other Alcohol Intake Frequency Comment: 2-3 drinks on 1-2 days/week Hx Substance Use: Yes substance use type: marijuana Substance Use Type Other:: marijuana use daily. Past hx rx drug abuse and meth, cocaine use Physical Exam Vital Signs Last Vital Signs Temp 36.8 C 11/16/18 06:54 Pulse 99 H 11/16/18 06:54 Resp 18 11/16/18 06:54 BP 141/97 H 11/16/18 06:54 Pulse Ox 94 11/16/18 06:54 Testing Laboratory Results 11/16/18 05:37 11/16/18 05:37 Urine Color Yellow 11/15/18 15:00 Urine Appearance Clear (Clear) 11/15/18 15:00 Urine pH 5.0 (4.5-7.5) 11/15/18 15:00 Ur Specific Bath 1.010 (1.000-1.030) 11/15/18 15:00 Urine Protein Negative (Negative) 11/15/18 15:00 Urine Glucose (UA) Negative (Negative) 11/15/18 15:00 Urine Ketones Negative (Negative) 11/15/18 15:00 Urine Nitrite Negative (Negative) 11/15/18 15:00 Ur Leukocyte Esterase Negative (Negative) 11/15/18 15:00 Urine WBC (Auto) 1-5 /hpf (0-5) 11/15/18 15:00 Urine RBC (Auto) 0-4 /hpf (0-4) 11/15/18 15:00 U Hyaline Cast (Auto) 0 /lpf (0-5) 11/15/18 15:00 U Epithel Cells (Auto) 0-5 /lpf (0-5) 11/15/18 15:00 Urine Bacteria (Auto) Negative (Negative) 11/15/18 15:00 11/15/18 15:00 Urine Culture - Preliminary Urine,Clean Catch No growth - Less than 1,000 colonies/mL, Final report to follow.
[2018-11-16] MEDS ORDERED: fentaNYL citrate 100 MCG/2 ML VIAL IV PRN (16:06)
[2018-11-16] MEDS ORDERED: ePHEDrine sulfate 50 MG/ML AMP IV PRN (16:06)
[2018-11-16] MEDS ORDERED: ATROPINE SULFATE 0.1 MG/ML 10ML SYR IV PRN (16:06)
[2018-11-16] MEDS ORDERED: fentaNYL citrate 100 MCG/2 ML VIAL ONE (17:11)
[2018-11-16] MEDS ORDERED: LIDOCAINE HCL 2% 2 ML VIAL/AMP(20MG/ML) INFIL ONE (17:41)
[2018-11-16] MEDS ORDERED: PROPOFOL IV EMULSION 10 MG/ML 20 ML VIAL IV ONE (17:41)
--- NOTE | 2018-11-16 17:48 | History & Physical Bridge Note ---
Date of Service November 16, 2018 History & Physical Bridge Note I have examined the patient, reviewed the History & Physical and in the interval since the performance of the History & Physical I have noted the following changes of clinical significance: no changes noted Supervising Physician Co-Signing Physician Notes Care coordinated with Anne MONGE. Agree with above note. Patient seen and examined. Please refer to her notes for full details. Vital signs reviewed. Physical exam: General exam: Alert and oriented. Not in acute distress. CVS: S1 and S2 heard, regular rate and rhythm, no murmurs. RS: Clear to auscultation, no wheezing or crackles. ABD: Soft, bowel sounds present, Left CVA tenderness present , no distention. 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 EXT: No edema, no erythema. Labs: Reviewed. Assessment and plan: 63M who was recently in hospital for left renal colic signed out AMA presents again with left flank pain and Ultrasound showing 8mm left UVJ stone Left renal colic pain control iv fluids, npo urology consult Right renal mass needs followup Leukocytosis afebrile UA negative will monitor Other diagnosis and plan of care as per []. Jose Manuel platt MD.
[2018-11-16] MEDS ORDERED: IOTHALAMATE MEGLUMINE II 17.2% 250 ML VIAL ONE (18:01)
[2018-11-16] MEDS ORDERED: ONDANSETRON INJ 2 MG/ML 2 ML VIAL ONE (18:08)
[2018-11-16] MEDS ORDERED: KETOROLAC 30 MG/ML VIAL ONE (18:30)
--- NOTE | 2018-11-16 18:50 | Post Operative Brief Note ---
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
--- NOTE | 2018-11-16 19:04 | Fluoroscopy Report ---
FL KUB CLINICAL HISTORY: LEFT CYSTO STENTstent placement COMPARISON STUDY: None FLUOROSCOPY TIME: 4 seconds NUMBER OF FLUOROSCOPIC IMAGES: 1 FINDINGS: Image intensifier usage for left ureteral stent placement IMPRESSION: Image intensifier usage for left ureteral stent placement. The above report was generated using voice recognition software. It may contain grammatical, syntax or spelling errors. Electronically signed by: Bill Pro M.D. 11/16/2018 7:01 PM
--- NOTE | 2018-11-16 20:37 | Anesthesiology Progress Note ---
Date of Service November 16, 2018 Anesthesia Post Procedure Vital Signs Vital Signs: Temp Pulse Pulse Resp BP BP Pulse Ox 11/16/18 20:20 36.3 C L 87 18 152/92 H 93 11/16/18 19:50 36.8 C 85 16 138/89 92 11/16/18 19:35 36.4 C L 79 17 127/76 96 11/16/18 19:25 82 12 122/75 95 11/16/18 19:15 87 17 139/81 91 11/16/18 19:05 88 18 138/89 97 11/16/18 18:58 36.1 C L 88 22 131/78 96 11/16/18 15:50 37.5 C 88 16 131/94 93 11/16/18 14:55 36.8 C 94 H 18 129/88 93 11/16/18 06:54 36.8 C 99 H 18 141/97 H 94 11/16/18 00:40 36.9 C 85 18 155/92 H 92 Pain Intensity Left Flank: Pain Intensity: 1 Transfer of Care Handoff Completed per policy Notes Mental Status: alert / awake / arousable Patient Amnestic to Procedure: Yes Nausea / Vomiting: adequately controlled Pain: adequately controlled Airway Patency, RR, SpO2: stable & adequate BP & HR: stable & adequate Hydration State: stable & adequate Anesthetic Complications: no major complications apparent and Pt Satisfied with anesthetic care
[2018-11-16] MEDS: DOCUSATE SODIUM/SENNA 50/8.6MG TAB PO SCH (21:25)
[2018-11-16] MEDS: TAMSULOSIN HCL 0.4 MG CAP PO SCH (21:25)
[2018-11-16] MEDS ORDERED: SODIUM CHLORIDE 0.9% 1000ML 1,000 ML IV SCH (22:45)
--- NOTE | 2018-11-16 23:13 | Operative Report ---
DATE OF OPERATION: 11/16/2018 PREOPERATIVE DIAGNOSES: Distal right ureteral stone and renal colic. POSTOPERATIVE DIAGNOSES: Distal right ureteral stone and renal colic. PROCEDURES PERFORMED: Cystoscopy, left ureteroscopy, laser lithotripsy and left stent placement. INDICATIONS: The patient is a 63-year-old male with ongoing pain from a distal left stone who was readmitted several times. The stone appeared small, so it was felt that it might pass, but it did not, so he was taken definitively for ureteroscopy this evening. DESCRIPTION OF THE PROCEDURE: The patient was taken to the cystoscopy suite after having Venodynes stockings placed and anesthesia was given. He had been given preoperative antibiotics. The scope was passed into the bladder. There were no strictures. Once inside the bladder, the stone appeared to be half way out of the left ureteral orifice, but impacted in the orifice. I did use a laser to fragment it at the lowest settings of 0.04 and 5 reps and did fragment it so that it was going back into the ureter and then I replaced the ureteroscope into the bladder, passed a Dual-Flex guidewire beyond the stone into the proximal ureter under fluoroscopy. Then I passed the scope up to the stone and fragmented it into multiple smaller pieces. There was some trauma to the ureteral orifice. At the end of the procedure, I replaced the cystoscope over the wire removing the ureteroscope, I did grasp this large stone fragment with a 3-prong grasper, which was quite small, there are multiple fragments left in the bladder and I passed a 6 Ghanaian 24 cm stent with a loop into the bladder. The patient was then transferred to recovery room in stable condition. I attest to the content of the Intraoperative Record and any orders documented therein. Any exception s are noted below.
[2018-11-17] MEDS: MoRPHine SULFATE 4 MG/ML 1 ML CARP\\VIAL IV PRN ×3 (00:35→09:21)
[2018-11-17] MEDS ORDERED: CIPROFLOXACIN 400 MG/200 ML BAG IV SCH (06:00)
[2018-11-17 06:30] LABS: Hematocrit (blood only) 41.3 % (42-52); Hemoglobin 14.2 g/dL (14.0-18.0); Mean Corpuscular Hgb Conc 34.4 g/dL (32-36); Mean Corpuscular Volume 94.3 fL (80-100); Mean Platelet Volume 9.7 fL (7.4-10.4); Platelet Count 276 K/uL (130-400); RDW Coefficient of Variation 14.2 % (11.5-14.5); RDW Standard Deviation 49.1 fL (36.4-46.3); Red Blood Count 4.38 M/uL (4.7-6.1); White Blood Count 15.16 K/uL (4.8-10.8)
[2018-11-17 07:01] LABS: BUN Creatinine Ratio 13.5 (10-20); Calcium 8.1 mg/dl (8.5-10.1); Creatinine Clr Calc Pharmacy 93.3 ml/min; Est GFR (African American) 108.7; Est GFR (Non-African American) 93.7; Potassium 3.8 mmol/L (3.5-5.1)
[2018-11-17] MEDS: OXYCODONE HCL IR 5 MG TAB (IMMEDIATE RELEASE) PO PRN (07:42)
[2018-11-17] MEDS: NICOTINE 21 MG/24 HR TDSY TD SCH (07:46)
--- NOTE | 2018-11-17 07:49 | Urology Progress Note ---
Date of Service November 17, 2018 Assessment & Plan (1) Ureteral stone: POD#1 s/p URS/laser/stent - stent pull to be arranged for outpt - will re-image to eval kidney lesion as outpt - likely d/c home today - cover with abx for 2 more days Subjective s.p cysto, URS/ll, stent - doing well - modest pain - tolerable - anxious for a cigarette - has a small renal lesion of concern - we will eval this as outpt Physical Exam Physical Exam: AFVSS NAD AAOX3 no resp distress abd soft, no cva tenderness Results & Data Vital Signs (Past 12 Hours) Vital Signs Temp Pulse Resp BP Pulse Ox 11/17/18 03:00 36.8 C 87 18 143/93 H 96 11/16/18 22:50 36.4 C L 96 H 19 121/73 91 11/16/18 21:48 36.5 C 89 19 126/90 94 11/16/18 20:50 36.3 C L 83 19 155/81 H 95 11/16/18 20:20 36.3 C L 87 18 152/92 H 93 11/16/18 19:50 36.8 C 85 16 138/89 92
[2018-11-17] MEDS ORDERED: CHOLECALCIFEROL 1,000 UNITS TAB PO SCH (09:00)
[2018-11-17] MEDS ORDERED: ASPIRIN/ALUM/MAGNES/CAL CARB 325 MG TAB PO SCH (09:00)
[2018-11-17] MEDS ORDERED: NICOTINE 21 MG/24 HR TDSY TD SCH (09:00)
[2018-11-17] MEDS ORDERED: TAMSULOSIN HCL 0.4 MG CAP PO SCH (09:00)
[2018-11-17] MEDS ORDERED: OMEGA-3 (PURIFIED FISH OIL) 1 GM CAP PO SCH (09:00)
[2018-11-17] MEDS ORDERED: CIPROFLOXACIN 500 MG TAB PO SCH (09:45)
[2018-11-17] MEDS ORDERED: OXYCODONE/ACETAMINOPHEN 5mg/325mg TAB PO PRN (10:07)
--- NOTE | 2018-11-17 10:28 | Hospitalist Progress Note ---
Date of Service November 17, 2018 Assessment & Plan (1) Renal colic: left Renal colic from left Ureteral stone (Cystoscopy, left ureteroscopy, laser lithotripsy and left stent placement performed on 11/16/18) pain is resolved (2) Ureteral stone: Left Ureteral stone Pt re admitted for recurrent left flank/lower quadrant pain Was seen in ER on 11/06/18 and dx with 3 mm calculus at the level of the left ureterovesical junction with secondary obstructive changes on CT scan. He was sent home on oxycodone, cipro, flomax. Pt states that he mixed up his cipro and flomax and did not take his flomax. He returned on 11/10/18 to 11/12/18. Had leukocytosis at 22K upon admission which down trended to 11.9 upon discharge. He was treated with Rocephin x 2 doses and urine culture was probable contamination and preliminary blood cultures without growth. Urology had seen pt and suspected pt would spontaneously pass stone. Patient was adamant about leaving AMA if not discharged. He in fact even left without his discharge paper work as didn't want to wait even for 30 minutes. Pt reports was pain free upon discharge and remained pain free until day of admission. -In ER pt was afebrile, KUB Normal study. No evidence for a distal left ureteral calculus -RENAL ULTRASOUND: Linear calculus about the left ureterovesicular junction redemonstrated measuring approximately 8 mm in length. There is persistent left- sided hydronephrosis. 1.7 cm solid lesion of the superior pole right kidney is concerning for renal cell carcinoma. -Cystoscopy, left ureteroscopy, laser lithotripsy and left stent placement performed on 11/16/18) [place] PDMP was checked and patient has no active narcotic prescriptions prior to this hospital admission Patient may take oxycodone-acetaminophen (Percocet) every 6 hours as needed for pain. 12 tablet prescription were made Patient has prescription for ciprofloxacin twice a day for 2 more days Patient has prescription of tamsulosin daily Patient should follow up with [facility] urology clinic for left uretal stent removal and follow up of the kidney mass/lesion Urology Instructions: Please take all medications as prescribed and keep all follow-ups as scheduled. Please call [facility] [place] [facility] at [phone] with any questions, concerns or need to reschedule appointments for any reason. We are happy to assist you. While you have a ureteral stent in place: Some discomfort is normal. Certain movements may trigger pain or a feeling that you need to urinate. You may also feel mild soreness or pressure before or during urination. These symptoms should go away a few days after the stent is removed. Your urine may be slightly pink or red. This is due to bleeding caused by minor irritation from the stent. This may happen on and off while you have the stent, it is not harmful and is to be expected. Medication to help minimize discomfort or bladder spasms, or to prevent infection may be prescribed. Take this as directed. Drink plenty of fluids to help flush out your urinary tract. How long will you need a stent? An appointment should already be made for you for stent removal, unless directed otherwise. The stent is often taken out after the blockage in the ureter is treated or the ureter has healed. This may take 1-2 weeks, or longer. If a stent is needed for a longer period of time, it may need to be exchanged every few months. Likely prior to your followup appointment you will be asked to get an X-ray, please complete this the night before or morning of your appointment. When to call [facility] at [phone]: Your urine contains heavy blood clots You are constantly leaking urine Fever of 101F or higher, chills, nausea, or vomiting Your pain is not relieved with medication The end of the stent comes out of your urethra (3) HTN (hypertension): BP elevated in ED blood pressure controlled would defer to primary care doctor as outpatient on further blood pressure management (4) Renal mass: Pt with noted 1.7 cm solid lesion of the superior pole right kidney is concerning for renal cell carcinoma on renal u/s as well as noted on CT abd/pelvis on 11/10/18 -pt to have outpatient follow up, this was previously discussed with pt during last admission and again discussed during this admission (5) Tobacco use: Tobacco abuse disorder: tobacco cessation recommended, and was given nicotine patch while inpatient -Patient given prescription of nicotine patches to quit smoking (6) Chronic hepatitis C: Reported completed outpatient Rx treatment No history of stroke and No history of heart attack Patient reports he chose on his own to take aspirin 650 mg daily Patient should follow up with primary care doctor at [facility]. Patient should stop taking aspirin 650 mg daily until follow up with primary care doctor Discharge Diagnosis left Renal colic from left Ureteral stone (Cystoscopy, left ureteroscopy, laser lithotripsy and left stent placement performed on 11/16/18), HTN (hypertension), renal mass (1.7 cm solid lesion of the superior pole right kidney is concerning for renal cell carcinoma on renal u/s as well as noted on CT abd/pelvis on 11/10/18), Tobacco abuse disorder Subjective Patient with baseline visual impairment. Cane at bedside. No acute flank pain today. Denies abdomen pain. No chest pain, no shortness of breath. Patient had no complaints and wants to go home home. Urology service had came by earlier and recommended hospital discharge. Hospital discharge instructions were discussed. Physical Exam Constitutional: WD/WN, vitals as above Eyes: PERRL, conjunctivae normal, anicteric sclerae (vision impaired) ENMT: external ear and nose normal, oropharynx normal Neck: normal visual inspection Respiratory: normal respiratory effort, lungs clear to auscultation Musculoskeletal: no cyanosis or clubbing, extremities motor strength 5/5 Head/Neck/Chest: normocephalic and head atraumatic Neurologic: normal touch/pain/proprioception and moves all extremities Psychiatric: A+Ox3, euthymic affect Results & Data Vital Signs (Past 12 Hours) Vital Signs Temp Pulse Pulse Resp BP Pulse Ox 11/17/18 07:51 37.1 C 90 15 146/60 H 96 11/17/18 03:00 36.8 C 87 18 143/93 H 96 11/16/18 22:50 36.4 C L 96 H 19 121/73 91
--- NOTE | 2018-11-17 10:39 | Discharge Summary ---
Date of Service November 17, 2018 Admission HPI Per Admitting Provider Pt is 63 y/o M with PMH chronic blindness, chronic HCV s/p treatment, tobacco use, h/o drug abuse presented to ER with c/o L flank pain. Pt was initially seen in ER on 11/06/18 and dx with 3 mm calculus at the level of the left ureterovesical junction with secondary obstructive changes on CT scan. He was sent home on oxycodone, cipro, flomax. Pt states that he mixed up his cipro and flomax. He returned on 11/10/18 and was admitted and discharged on 11/12/18. Had leukocytosis at 22K upon admission which down trended to 11.9 upon discharge. He was treated with Rocephin x 2 doses and urine culture was probable contamination and preliminary blood cultures without growth. Urology had seen pt and conservative measures where taken. Pt reports was pain free upon discharge and remained pain free until today. Today started with L flank pain with radiation to L groin with dysuria. He is unsure if any hematuria or if had passed any stone. He denies urinary retention, nausea, vomiting. Has been eating and drinking well. Chronic cough, denies worsening. Denies fever/chills, diaphoresis, diarrhea, constipation, RENE, dizziness, syncope, vision changes, neck pain, CP, SOB, orthopnea, palpitations, sore throat, choking, otalgia, rhinorrhea, paresthesias, weakness, extremity edema. Admission Exam Per Admitting Provider General: no acute distress, WDWN Head: normocephalic, atraumatic Eyes: +eye prosthesis bilaterally ENT: normal inspection external ears, nose, mucous membranes moist Neck: supple, trachea midline Lungs: clear, no respiratory distress, no wheezing/rhonchi/rales CV: RRR, no murmur, no JVD, no pretibial edema Abd: normal BS, soft, +tenderness to palpation L flank, LLQ, no other abdominal tenderness to palpation, no CVA tenderness to palpation Ext: no cyanosis, no calf tenderness Neuro: A&O x 3, no focal deficits noted, normal affect Skin: warm, dry Principal Diagnosis left Renal colic from left Ureteral stone (Cystoscopy, left ureteroscopy, laser lithotripsy and left stent placement performed on 11/16/18), HTN (hypertension), renal mass (1.7 cm solid lesion of the superior pole right kidney is concerning for renal cell carcinoma on renal u/s as well as noted on CT abd/pelvis on 11/10/18), Tobacco abuse disorder Discharge Exam Constitutional WD/WN, vitals as above Eyes PERRL, conjunctivae normal, anicteric sclerae (vision impaired) ENMT external ear and nose normal, oropharynx normal Neck normal visual inspection Respiratory normal respiratory effort, lungs clear to auscultation Musculoskeletal no cyanosis or clubbing, extremities motor strength 5/5 Head/Neck/Chest: normocephalic and head atraumatic Neurologic normal touch/pain/proprioception and moves all extremities Psychiatric A+Ox3, euthymic affect Discharge Data Allergies Allergy/AdvReac Type Severity Reaction Status Date / Time amoxicillin Allergy Mild RASH Verified 11/15/18 14:36 Consultations 11/15/18 18:24 ED Decision to Admit Stat 11/15/18 19:41 Consult Urology Routine Procedures Performed Operation Date: 11/16/18 16:30 Actual Procedures p Cystoscopy, left Ureteroscopy, Left Laser Lithotripsy - Fernando York MD s Left Stent Placement(Left) - Fernando York MD Ordered Studies 11/15/18 14:18 US renal/blad retro comp Stat 11/16/18 FL fluoroscopy <1hr Routine 11/16/18 13:30 FL KUB Routine Hospital Course (1) Renal colic: left Renal colic from left Ureteral stone (Cystoscopy, left ureteroscopy, laser lithotripsy and left stent placement performed on 11/16/18) pain is resolved (2) Ureteral stone: Left Ureteral stone Pt re admitted for recurrent left flank/lower quadrant pain Was seen in ER on 11/06/18 and dx with 3 mm calculus at the level of the left ureterovesical junction with secondary obstructive changes on CT scan. He was sent home on oxycodone, cipro, flomax. Pt states that he mixed up his cipro and flomax and did not take his flomax. He returned on 11/10/18 to 11/12/18. Had leukocytosis at 22K upon admission which down trended to 11.9 upon discharge. He was treated with Rocephin x 2 doses and urine culture was probable contamination and preliminary blood cultures without growth. Urology had seen pt and suspected pt would spontaneously pass stone. Patient was adamant about leaving AMA if not discharged. He in fact even left without his discharge paper work as didn't want to wait even for 30 minutes. Pt reports was pain free upon discharge and remained pain free until day of admission. -In ER pt was afebrile, KUB Normal study. No evidence for a distal left ureteral calculus -RENAL ULTRASOUND: Linear calculus about the left ureterovesicular junction redemonstrated measuring approximately 8 mm in length. There is persistent left- sided hydronephrosis. 1.7 cm solid lesion of the superior pole right kidney is concerning for renal cell carcinoma. -Cystoscopy, left ureteroscopy, laser lithotripsy and left stent placement performed on 11/16/18) [place] PDMP was checked and patient has no active narcotic prescriptions prior to this hospital admission Patient may take oxycodone-acetaminophen (Percocet) every 6 hours as needed for pain. 12 tablet prescription were made Patient has prescription for ciprofloxacin twice a day for 2 more days Patient has prescription of tamsulosin daily Patient should follow up with [facility] urology clinic for left uretal stent removal and follow up of the kidney mass/lesion Urology Instructions: Please take all medications as prescribed and keep all follow-ups as scheduled. Please call [facility] at [phone] with any questions, concerns or need to reschedule appointments for any reason. We are happy to assist you. While you have a ureteral stent in place: Some discomfort is normal. Certain movements may trigger pain or a feeling that you need to urinate. You may also feel mild soreness or pressure before or during urination. These symptoms should go away a few days after the stent is removed. Your urine may be slightly pink or red. This is due to bleeding caused by minor irritation from the stent. This may happen on and off while you have the stent, it is not harmful and is to be expected. Medication to help minimize discomfort or bladder spasms, or to prevent infection may be prescribed. Take this as directed. Drink plenty of fluids to help flush out your urinary tract. How long will you need a stent? An appointment should already be made for you for stent removal, unless directed otherwise. The stent is often taken out after the blockage in the ureter is treated or the ureter has healed. This may take 1-2 weeks, or longer. If a stent is needed for a longer period of time, it may need to be exchanged every few months. Likely prior to your followup appointment you will be asked to get an X-ray, please complete this the night before or morning of your appointment. When to call [facility] at [phone]: Your urine contains heavy blood clots You are constantly leaking urine Fever of 101F or higher, chills, nausea, or vomiting Your pain is not relieved with medication The end of the stent comes out of your urethra (3) HTN (hypertension): BP elevated in ED blood pressure controlled would defer to primary care doctor as outpatient on further blood pressure management (4) Renal mass: Pt with noted 1.7 cm solid lesion of the superior pole right kidney is concerning for renal cell carcinoma on renal u/s as well as noted on CT abd/pelvis on 11/10/18 -pt to have outpatient follow up, this was previously discussed with pt during last admission and again discussed during this admission (5) Tobacco use: Tobacco abuse disorder: tobacco cessation recommended, and was given john carey patch while inpatient -Patient given prescription of nicotine patches to quit smoking (6) Chronic hepatitis C: Reported completed outpatient Rx treatment No history of stroke and No history of heart attack Patient reports he chose on his own to take aspirin 650 mg daily Patient should follow up with primary care doctor at [facility]. Patient s jeffreyuld stop taking aspirin 650 mg daily until follow up with primary care doctor Discharge Diagnosis left Renal colic from left Ureteral stone (Cystoscopy, left ureteroscopy, laser lithotripsy and left stent placement performed on 11/16/18), HTN (hypertension), renal mass (1.7 cm solid lesion of the superior pole right kidney is concerning for renal cell carcinoma on renal u/s as well as noted on CT abd/pelvis on 11/10/18), Tobacco abuse disorder Total Time Total Time Spent Total Time Spent (In Minutes): 40 minutes Total Time Includes: Examination of the Patient, Discharge Planning, Medication Reconciliation and Communication With Other Providers Discharge Plan Discharge Items Patient Disposition: Home - Self-Care Reason For Visit: RENAL COLIC Discharge Diagnosis: left Renal colic from left Ureteral stone (Cystoscopy, left ureteroscopy, laser lithotripsy and left stent placement performed on 11/16/18), HTN (hypertension), renal mass (1.7 cm solid lesion of the superior pole right kidney is concerning for renal cell carcinoma on renal u/s as well as noted on CT abd/pelvis on 11/10/18), Tobacco abuse disorder Condition: Good Discharge Goals: Improve disease control Activity: Resume your previous activity Non-emergency contact: Primary Care Provider and Urologist Call non-emergency contact if: you have any medication questions Follow-up/Referrals: Pedro Vides MD [Primary Care Provider] - Diet: Regular Addtl Provider Instructions: [place] PDMP was checked and patient has no active narcotic prescriptions prior to this hospital admission Patient may take oxycodone-acetaminophen (Percocet) every 6 hours as needed for pain. 12 tablet prescription were made Patient has prescription for ciprofloxacin twice a day for 2 more days Patient has prescription of tamsulosin daily Patient should follow up with [facility] urology clinic for left uretal stent removal and follow up of the kidney mass/lesion Patient given prescription of nicotine patches to quit smoking Patient should follow up with primary care doctor at [facility]. Patient should stop taking aspirin 650 mg daily until follow up with primary care doctor Urology Instructions: Please take all medications as prescribed and keep all follow-ups as scheduled. Please call [facility] at [phone] with any questions, concerns or need to reschedule appointments for any reason. We are happy to assist you. While you have a ureteral stent in place: Some discomfort is normal. Certain movements may trigger pain or a feeling that you need to urinate. You may also feel mild soreness or pressure before or during urination. These symptoms should go away a few days after the stent is removed. Your urine may be slightly pink or red. This is due to bleeding caused by minor irritation from the stent. This may happen on and off while you have the stent, it is not harmful and is to be expected. Medication to help minimize discomfort or bladder spasms, or to prevent infection may be prescribed. Take this as directed. Drink plenty of fluids to help flush out your urinary tract. How long will you need a stent? An appointment should already be made for you for stent removal, unless directed otherwise. The stent is often taken out after the blockage in the ureter is treated or the ureter has healed. This may take 1-2 weeks, or longer. If a stent is needed for a longer period of time, it may need to be exchanged every few months. Likely prior to your followup appointment you will be asked to get an X-ray, please complete this the night before or morning of your appointment. When to call [facility] at [phone]: Your urine contains heavy blood clots You are constantly leaking urine Fever of 101F or higher, chills, nausea, or vomiting Your pain is not relieved with medication The end of the stent comes out of your urethra Prescriptions: New ciprofloxacin HCl 500 mg Tablet 500 mg PO BID 2 Days Qty: 4 RF: 0 tamsulosin 0.4 mg Capsule 0.4 mg PO DAILY 30 Days Qty: 30 RF: 0 nicotine [Nicoderm CQ] 21 mg/24 hr Patch 24 Hour 21 mg transdermal QAM 30 Days Qty: 30 RF: 0 oxycodone-acetaminophen 5-325 mg tablet 1 tab PO Q6H PRN (Reason: pain) 3 Days Qty: 12 RF: 0 Continued omega 2-[id number]-fish oil [Fish Oil] 1,000 mg (120 mg-180 mg) Capsule 2 cap PO QAM RF: 0 cholecalciferol (vitamin D3) 2,000 unit Tablet 2,000 unit PO DAILY RF: 0 Discontinued tamsulosin [Flomax] 0.4 mg capsule 0.4 mg PO DAILY Qty: 10 RF: 0 aspirin, buffered 325 mg Tablet 650 mg PO DAILY RF: 0 Stand-Alone Forms: [facility] Discharge Orders: Discharge Order (Routine); Ordered 11/17/18 Ordered By: Sonido Champion Admission Data Admit Date/Time: 11/15/18 19:09 Attending Provider: Sonido Champion Admit Provider: Jose Manuel Reagan Primary Care Provider: Pedro Vides Other Providers: Ailyn Ferraro ; Caleb Godoy Service: Surgical Services
[2018-11-22 09:38] LABS: Component 2 DNR
== END 2018-11-17 11:57 | disposition home or self-care (01) ==
LOC: 3N 13:32 → ED 13:32 → SUATTDRO 19:09 → 3N 19:36